=== PATIENT | male | born 1960 | race Caucasian/White ===

== ENCOUNTER 2024-02-28 10:49 | Outpatient (OUT) | payer OTHER, SELFPAY ==
--- NOTE | 2024-02-28 10:58 | ECG_ITS ---
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
--- NOTE | 2024-02-28 11:40 | P.GSHP_ITS ---
History of Present Illness History of Present Illness Chief complaint: left rotator cuff tear Narrative: Patient presents for preadmission testing accompanied by his . The patient states he had a work-related shoulder injury in July 2023. He states he continues to have limited range of motion and pain with his left shoulder. He does take meloxicam and Tylenol to help with his discomfort. He denies numbness, tingling, or any other complaints. Review of Systems ROS Narrative REVIEW OF SYSTEMS: Negative except as stated in HPI, ten or more systems reviewed. Constitutional: No fever, chills, weakness ENT: No sore throat or epistaxis Cardiovascular: No edema, chest pain, palpitations, or activity intolerance Respiratory: No shortness of breath, cough, or wheezing Gastrointestinal: No abdominal pain, constipation, diarrhea, or vomiting Genitourinary: No dysuria or hematuria Neurological: No numbness, tingling, weakness, or headache Psychiatric: No mood changes PFSH PFSH Medical History (Updated 02/28/24 @ 11:39 by Danielle Hope NP) Shoulder pain ?M25.519 - Pain in unspecified shoulder (ICD-10) Arthritis ?M19.90 - Unspecified osteoarthritis, unspecified site (ICD-10) Anxiety ?F41.9 - Anxiety disorder, unspecified (ICD-10) Heat syncope ?T67.1XXA - Heat syncope, initial encounter (ICD-10) Prostate nodule ?N40.2 - Nodular prostate without lower urinary tract symptoms (ICD-10) Hernia ?K46.9 - Unspecified abdominal hernia without obstruction or gangrene (ICD- 10) Rotator cuff tear ?M75.100 - Unspecified rotator cuff tear or rupture of unspecified shoulder, not specified as traumatic (ICD-10) Surgical History (Updated 02/28/24 @ 11:16 by Danielle Hope NP) History of hernia repair ?Z98.890 - Other specified postprocedural states (ICD-10) ?Z87.19 - Personal history of other diseases of the digestive system (ICD-10) Family History (Updated 02/28/24 @ 11:16 by Danielle Hope NP) Other Cancer Congestive heart failure Family history of heart disease Family history of hypertension Family history of lung cancer Family history of myocardial infarction Family history of prostate cancer Social History (Updated 02/28/24 @ 11:10 by Danielel Hope NP) Within the past year, how often did you have a drink containing alcohol: never Score interpretation: A score less than 4 is consistent with normal alcohol consumption. 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 Highest level of school completed/degree received: high school graduate Meds Home Medications and Allergies Home Medications ?Medication ?Instructions ?Recorded ?Confirmed ?Type acetaminophen 325 mg capsule 650 mg PO Q6H PRN pain 02/28/24 02/28/24 History (Tylenol) meloxicam 15 mg tablet 15 mg PO DAILY 02/28/24 02/28/24 History Allergies Allergy/AdvReac Type Severity Reaction Status Date / Time No Known Drug Allergies Allergy Verified 02/28/24 11:08 Exam Narrative Exam Narrative: Constitutional: Awake, alert, comfortable, well-appearing, nontoxic, interactive, vital signs as charted Head: Normocephalic, atraumatic Neck: Supple, normal appearance, normal range of motion, no meningeal signs, no lymphadenopathy Respiratory: No respiratory distress, breath sounds clear Cardiovascular: Regular rate and rhythm, strong and regular heart tones Musculoskeletal: Mild anterior left shoulder tenderness, pain with range of motion and resistance Skin: No rashes or induration, no lesions, only visible skin inspected Neuro: No neurological deficits, normal sensation Psychiatric: Oriented ?3, normal affect Assessment and Plan Assessment and Plan (1) Shoulder pain: (2) Rotator cuff tear: Plan Left shoulder arthroscopic rotator cuff repair scheduled with Dr. Mcmillan March 10, 2024.
== END 2024-02-28 10:50 | disposition home or self-care (01) ==
LOC: PST 10:53
PROVIDERS: PCP Internal Medicine; Visit Provider Orthopaedic Surgery
DX: Z01.810 Encounter for preprocedural cardiovascular examination (principal); Z01.818 Encounter for other preprocedural examination; S46.012A Strain of muscle(s) and tendon(s) of the rotator cuff of left shoulder, initial encounter
CPT/HCPCS: 93005; G0463

== ENCOUNTER 2024-03-10 11:41 | Day surgery (SDC) | payer OTHER, SELFPAY ==
[2024-02-28 11:36] VITALS: BP 142/96; PULSE 49; TEMP 36.4; O2SAT 97; BMI 25.8
[2024-03-10] VITALS (19 sets, daily range): BP systolic 110–164; BP diastolic 76–97; PULSE 58–78; TEMP 36.1–36.4; O2SAT 40–100; BMI 24.8
[2024-03-10 11:52] LABS: Basophils Absolute Auto 0.1 10^3/uL (0.0-0.1); Basophils Percent Auto 0.7 % (0.2-2.0); Eosinophils Absolute Auto 0.2 10^3/uL (0.0-0.7); Eosinophils Percent Auto 3.3 % (0.9-7.0); Hematocrit 46.6 % (42.0-54.0); Hemoglobin 15.2 g/dL (14.0-18.0); Immature Granulocytes Abs Auto 0.02 10^3/uL (0.00-0.03); Immature Granulocytes Pct Auto 0.3 % (0.0-0.5); Lymphocytes Absolute Auto 2.6 10^3/uL (1.2-3.8); Lymphocytes Percent Auto 35.1 % (20.5-60.0); Mean Corpuscular HGB Conc 32.6 g/dL (29.9-35.2); Mean Corpuscular Hemoglobin 29.9 pg (25.9-34.0); Mean Corpuscular Volume 91.7 fL (80.0-94.0); Mean Platelet Volume 10.5 fL (9.5-13.5); Monocytes Absolute Auto 0.6 10^3/uL (0.3-0.8); Monocytes Percent Auto 7.6 % (1.7-12.0); Neutrophils Absolute Auto 3.9 10^3/uL (1.4-6.5); Platelet Count 219 10^3/uL (150-450); Red Blood Count 5.08 10^6/uL (4.70-6.10); Red Cell Distribution Width 12.2 % (11.0-15.0); White Blood Count 7.3 10^3/uL (4.0-11.0)
--- OUTSIDE RECORDS SUMMARY | 2024-03-10 12:06 | XMS_ITS ---
Patient Summarization (C-CDA 2.1 CCD) Created on: March 10, 2024 DALLIN DAMON : 1960 Sex: Male Author Organization Sample organization Care Team Providers Care Hammer Heater Name Role Phone Guy Díaz Primary Care Provider DARRYL MORRIS I Admitting Unavailable DARRYL MORRIS I Attending Unavailable BACK, GUY Primary Care Unavailable Back Guy SHEPPARD Primary Care Provider BACK, GUY Primary Care Unavailable MARINE COOK Attending Unavailable BACK, GUY Referring Unavailable BACK, GUY Primary Care Unavailable BACK, GUY Referring Unavailable BACK, GUY Primary Care Unavailable BACK, GUY Referring Unavailable BACK, GUY Primary Care Unavailable NAZEMI I, DARRYL Referring Unavailable BACK, GUY Primary Care Unavailable WINSOME MODI Referring Unavailable BACK, GUY Primary Care Unavailable BACK, GUY Referring Unavailable BACK, GUY Primary Care Unavailable Encounters Encounter Date Encounter Type Care Provider Facility Start: 12-13-2023 End: 12-16-2023 ambulatory WINSOME MODI [facility] Start: 10-03-2023 ambulatory [facility] Start: 09-26-2023 End: 09-26-2023 Subsequent hospital visit by physician Dorcas Guerra [employer] [facility] Start: 09-18-2023 End: 09-19-2023 [facility] Start: 08-28-2023 End: 08-31-2023 ambulatory [facility] Start: 01-18-2023 End: 01-18-2023 Emergency department patient visit [facility] Start: 01-18-2023 End: 01-18-2023 Emergency department patient visit Marine Cook DO Work Phone: [facility] ED Comment on above: Acute urinary retent ion (Primary Dx) Start: 01-18-2023 End: 01-18-2023 [facility] Start: 01-18-2023 End: 01-18-2023 Subsequent hospital visit by physician Darryl Morris DO [facility] Comment on above: Acute postoperative pain (Primary Dx); Inguinal hernia without obstruction or gangrene, recurrence not specified, unspecified laterality Start: 01-04-2023 End: 01-05-2023 [facility] Start: 01-04-2023 Encounter for other preprocedural examination [facility] Start: 01-04-2023 End: 01-04-2023 Patient encounter status Guy Díaz MD Work Phone: [facility] Start: 01-04-2023 End: 01-04-2023 Subsequent hospital visit by physician Guy Díaz MD Work Phone: [facility] Comment on above: Pre-op testing Start: 07-14-2022 End: 07-16-2022 Subsequent hospital visit by physician Ray Cat Scan Room [facility] CT Scan Comment on above: Left groin pain Start: 01-30-2022 End: 02-01-2022 Subsequent hospital visit by physician Ray Additional Xray At [facility] Comment on above: Hip pain, left Start: 09-29-2021 End: 10-01-2021 Subsequent hospital visit by physician Guy Díaz MD Work Phone: [facility]iology Start: 07-09-2021 End: 07-09-2021 Subsequent hospital visit by physician Guy Díaz MD Work Phone: [facility] Comment on above: Chest pain, unspecif ied type; Vitamin D deficiency disease; Fatigue, unspecified type Start: 05-02-2021 End: 05-04-2021 Subsequent hospital visit by physician Ray Stress Rm [facility] Comment on above: Arrived Precordial pain; Abnormal ECG Acute pain of right knee Start: 07-10-2019 End: 07-10-2019 Emergency department patient visit Ilsa Lobo Work Phone: [facility] ED Comment on above: Clostridium difficil e colitis (Primary Dx) Medical Equipment Procedure Code Equipment Code Equipment Origin al Text Equipment Identifier Dates Mesh Theodore L [id number] Inguinal Wht [facility] - [id number] Start: 01-18-2023 Immunizations Immunization Date Immunization Notes Care Provider Chikis flores 06-24-2019 influenza, injectabl e, quadrivalent, preservative free Ilsa Lobo [facility] Medications Current Medications Medication Drug Class(es) Dates Sig (Normalized) Sig (Original) acetaminophen 325 mg / oxyCODONE hydrochloride 5 mg oral tablet (2 sources) Opioid Agonist Start: 01-18-2023 End: 01-25-2023 oxyCODONE-acetaminop hen (PERCOCET) 5-325 MG per tablet Indications: Acute postoperative pain Take 1 tablet by mouth every 4-6 hours as needed for Pain for up to 7 days. Intended supply: 7 days. Take lowest dose possible to manage pain Max Daily Amount: 6 tablets 20 tablet 0 01/18/2023 01/25/2023 Active calcium chloride 0.0014 meq/ml / potassium chloride 0.004 meq/ml / sodium chloride 0.103 meq/ml / sodium lactate 0.028 meq/ml injectable solution (2 sources) Start: 01-18-2023 IntraVENous, at 125 mL/hr, CONTINUOUS, Starting on Xuan 01/18/23 at 1245, PACU only Start: 01-18-2023 lactated ringe rs IV soln infusion Chlorpheniramine (15 sources) Histamine-1 Receptor Antagonist Chlorpheniramine Maleate (ALLERGY PO) Take by mouth 0 Active ibuprofen 600 mg oral tablet (3 sources) Nonsteroidal Anti-inflammatory Drug Start: 023 take 1 tablet by mouth three times daily as needed for pain ibuprofen (ADVIL;MOTRIN) 600 MG tablet Take 1 tablet by mouth 3 times daily as needed for Pain (take w/ food- can alternate with percocet) 20 tablet 0 01/18/2023 Active lidocaine hydrochloride 0.02 mg/mg topical gel (1 source) Antiarrhythmic, Amide Local Anesthetic Start: lidocaine (XYLOCAINE) 2 % uro-jet meloxicam 15 mg oral tablet (9 sources) Nonsteroidal Anti-inflammatory Drug Start: take 1 tablet by mouth once daily meloxicam (MOBIC) 15 MG tablet Indications: Trapezius strain, left, initial encounter Take 1 tablet by mouth daily 30 tablet 0 08/30/2023 Active Start: 06-05-2021 take 1 tablet by prabhu th once daily meloxicam (MOBIC) 15 MG tablet TAKE 1 TABLET BY MOUTH once a day FOR 30 DAYS 0 06/05/2021 Active metroNIDAZOLE 500 mg oral tablet (1 source) Nitroimidazole Antimicrobial Start: 07-10-2019 End: 07-17-2019 take 1 tablet by mouth three times daily metroNIDAZOLE (FLAGYL) 500 MG tablet Take 1 tablet by mouth 3 times daily for 7 days 21 tablet 0 07/10/2019 07/17/2019 Active Multiple Vitamin (MULTI-VITAMIN PO) (6 sources) Multiple Vitamin (MULTI-VITAMIN PO) Take by mouth 0 Active ondansetron 4 mg oral tablet (3 sources) Serotonin-3 Receptor Antagonist Start: 01-18-2023 take 1 tablet by mouth every eight hours as needed for nausea ondansetron (ZOFRAN) 4 MG tablet Take 1 tablet by mouth every 8 hours as needed for Nausea or Vomiting 15 tablet 0 01/18/2023 Active Start: 01-18-2023 End: 01-19-2023 4 mg, IntraVENous, ONCE PRN, 1 dose, Starting on Xuan 01/18/23 at 1225, Until Sun01/19/23 at 1225, Nausea Initial antiemetic therapy. PACU only 2 ml prochlorperazine 5 mg/ml injection (1 source) Phenothiazine Start: 01-18-2023 End: 01-19-2023 5 mg, IntraVENous, ONCE PRN, 1 dose, Starting on Xuan 01/18/23 at 1225, Until Sun01/19/23 at 1225, Nausea Secondary antiemetic therapy. PACU only Pseudoephedrine (1 source) alpha-Adrenergic Agonist Pseudoephedrine HCl (SUDAFED PO) Take by mouth 0 Active tiZANidine 4 mg oral tablet (1 source) Central alpha-2 Adrenergic Agonist Start: 08-30-2023 take 1 tablet by mouth once daily tiZANidine (ZANAFLEX) 4 MG tablet Indications: Trapezius strain, left, initial encounter Take 1 tablet by mouth nightly 30 tablet 0 08/30/2023 Active Completed/Discontinued Medications Medication Drug Class(es) Dates Sig (Normalized) Sig (Original) acetaminophen 325 mg oral tablet (2 sources) Start: 01-18-2023 End: 01-18-2023 acetaminophen (TYLENOL) tablet 650 mg Start: 01-18-2023 End: 01-18-2023 acetaminophen (TYLENOL) tabl et 650 mg ceFAZolin 2000 mg injection (1 source) Cephalosporin Antibacterial Start: 01-18-2023 End: 01-18-2023 ceFAZolin (ANCEF) 2000 mg in 0.9% sodium chloride 100 mL IVPB dimenhyDRINATE 50 mg oral tablet (2 sources) Start: 01-18-2023 End: 01-18-2023 dimenhyDRINATE (DRAMAMINE) tablet 50 mg Start: 01-18-2023 End: 01-18-2023 dimenhyDRINATE (DRAMAMINE) t ablet 50 mg 2 ml fentaNYL 0.05 mg/ml injection (2 sources) Opioid Agonist Start: 01-18-2023 50 mcg, IntraV ENous, EVERY 5 MIN PRN, 4 doses, Starting on Xuan 01/18/23 at 1225, Until Discontinued, Pain Severe (7-10) Phase I - Initial therapy for severe pain. PACU only Start: 01-18-2023 25 mcg, IntraV ENous, EVERY 5 MIN PRN, 4 doses, Starting on Xuan 01/18/23 at 1225, Until Discontinued, Pain Moderate (4-6) Phase I - Initial therapy for moderate pain. PACU only gabapentin 100 mg oral capsule (2 sources) Anti-epileptic Agent Start: 01-18-2023 End: 01-18-2023 gabapentin (NEURONTIN) capsule 100 mg Start: 01-18-2023 End: 01-18-2023 gabapentin (NEURONTIN) capsu le 100 mg iopamidol (ISOVUE-370) 76 % injection 75 mL (1 source) Start: 07-14-2022 End: 07-14-2022 iopamidol (ISOVUE-370) 76 % injection 75 mL regadenoson (LEXISCAN) injec tion 0.4 mg (1 source) Start: 05-02-2021 End: 05-02-2021 regadenoson (LEXISCAN) injection 0.4 mg 3 ml sodium chloride 9 mg/ml injection (2 sources) Start: 05-02-2021 End: 05-02-2021 sodium chloride flush 0.9 % injection 10 mL Start: 07-10-2019 End: 07-10-2019 0.9 % sodium chloride bolus technetium sestamibi (CARDIOLITE) injection 30 millicurie (1 source) Start: 05-02-2021 End: 05-02-2021 technetium sestamibi (CARDIOLITE) injection 30 millicurie Payers Date Payer Category Payer Unknown [id number] 2022 Private Health Insurance [id number] 2020 Unknown [id number] 2018 Unknown BC[place] P PO xxxxxxxxxxxx 2018-Present [address] [place] [address] xxxxxxxxxxxx [id number] 2014 Private Health Insurance [id number] 1960 Unknown [id number] 1960 Unknown [id number] 1960 Unknown [id number] 1960 Unknown [id number] 1960 Unknown [id number] 1960 Unknown [id number] 1960 Unknown [id number] 1960 Unknown [id number] Plan of Treatment Date Care Activity Detail Author Start: 07-09-2026 Lipid panel [facility] Start: 03-10-2025 Screening for malign ant neoplasm of colon [facility] Start: 07-03-2024 Depression Screen Depression Screen [facility] Start: 10-04-2023 End: 10-04-2023 Patient encounter procedure 10/04/2023 4:45 PM EST Appointment [facility] [address] [place] [address] Pete Collier, PT [facility]/[employer] Ins 3 of 30 valid till 12/30/2023(Ins Reset 12/31/2023)- LT Trapezius strain-Back, Guy [facility] Comment on above: [employer] Ins 3 of 30 valid till 12/30/2023(Ins Reset 12/31/2023)- LT Trapezius strain-Back, Guy Start: 10-03-2023 End: 10-03-2023 Patient encounter procedure 10/03/2023 4:45 PM EST Appointment [facility] [address] [place] [address] Pete Collier, PT C/[employer] Ins 2 of 30 valid till 12/30/2023(Ins Reset 12/31/2023)- LT Trapezius strain-Back, Guy [facility] Comment on above: [employer] Ins 2 of 30 valid till 12/30/2023(Ins Reset 12/31/2023)- LT Trapezius strain-Back, Guy Start: 05-01-2023 Influenza vaccination [facility] Start: 01-31-2023 End: 01-31-2023 Patient encounter procedure 01/31/2023 Office Visit General Surgery Darryl Morris I, DO [address] [place] [address] [facility] SURGERY [facility] Start: 01-26-2023 Depression Screen Depression Screen [facility] Start: 01-24-2023 End: 01-24-2023 Patient encounter procedure 01/24/2023 Office Visit General Surgery Darryl Morris I, DO [address] [place] [id number] [facility] Start: 01-18-2023 End: 01-18-2023 Admission to same day surgery center 01/18/2023 Surgery IP Unit Darryl Morris I, DO [address] [place] [address] HERNIA INGUINAL REPAIR LAPAROSCOPIC ROBOTIC [facility] OR Comment on above: HERNIA INGUINAL REPA IR LAPAROSCOPIC ROBOTIC Start: 01-18-2023 End: 01-18-2023 Laparoscopy surg rpr initial inguinal hernia [facility] Start: 01-18-2023 Subsequent hospital visit by physician 01/18/2023 Hospital Encounter IP Unit Darryl Morris I, DO [address] [place] [id number] [facility] Start: 06-01-2022 Influenza vaccination Flu vaccine (S rodney Ended) [facility] Start: 05-01-2022 Influenza vaccination Flu vaccine (# 1) [facility] Start: 04-26-2022 End: 04-26-2022 Admission to same day surgery center 04/26/2022 Surgery IP Unit Clive Cueva MD [address] [place] [address] HERNIA INGUINAL REPAIR [facility] Comment on above: HERNIA INGUINAL REPA IR Start: 04-26-2022 End: 04-26-2022 Laparoscopy surg rpr initial inguinal hernia HERNIA INGUINAL REPAIR LT INGUINAL HERNIA 04/26/2022 8:00 AM EDT [facility] Start: 04-26-2022 Subsequent hospital visit by physician 04/26/2022 Hospital Encounter IP Unit Clive Cueva MD [address] [place] [address] [address] [place] [id number] [facility] Start: 06-01-2021 Influenza vaccination Flu vaccine (# 1) [facility] Start: 2021 Respiratory Syncytia l Virus (RSV) or age 60 yrs+ (1 - 1-dose 60+ series) Respiratory Syncytial Virus (RSV) or age 60 yrs+ (1 - 1-dose 60+ series) [facility] Start: 06-24-2019 Annual Wellness Visi t (AWV) Annual Wellness Visit (AWV) [place], [place] Start: 2011 Colon cancer screen colonoscopy Colon cancer screen colonoscopy [place], [place] Start: 2011 Shingles Vaccine (1 of 2) Shingles Vaccine (1 of 2) [facility] Start: 2006 Screening for malign ant neoplasm of colon [facility] Start: 2001 Lipid panel Lipid screen [facility] Work Phone: Start: 2001 Lipid screen Lipid screen [place], [place] Start: 1996 Diabetes screen Diabetes screen [facility] Start: 1980 DTaP/Tdap/Td vaccine (1 - Tdap) DTaP/Tdap/Td vaccine (1 - Tdap) [facility] Start: 1979 Hepatitis C screening Hepatitis C sc [facility] Start: 1976 HIV screen HIV screen [place], [place] Start: 1976 HIV screening HIV screen [facility] Start: 1973 COVID-19 Vaccine (1) COVID-19 Vaccin e (1) [employer] Phone: Start: 1966 COVID-19 Vaccine (1) COVID-19 Vaccin e (1) [employer] Start: 1960 COVID-19 Vaccine (#1) COVID-19 Vacci ne (#1) [facility] [employer] Start: 1960 Hepatitis C screen Hepatitis C scree n [facility] [employer] [place], [place] Start: 1961 Hepatitis C screening [facility] End: 05-02-2021 Cardiac Stress Test- W Pharm Cardiac Stress Test- W Pharm Cardiac Services Routine One Time for 1 Occurrences starting 05/02/2021 until 05/02/2021 [employer] Phone: Comment on above: One Time for 1 Occur rences starting 05/02/2021 until 05/02/2021 End: 07-10-2019 Culture Stool Culture Stool Microbiology Routine One Time for 1 Occurrences starting 07/10/2019 until 07/10/2019 [facility] [employer] Comment on above: One Time for 1 Occur rences starting 07/10/2019 until 07/10/2019 Culture Stool Culture Stool Mi crobiology Stat [employer] Label print 07/10/2019 6:52 PM EDT [facility] [employer] End: 05-02-2021 ECHO Complete 2D W Doppler W Color ECHO Complete 2D W Doppler W Color Echocardiography Routine Precordial pain Abnormal ECG 1 Occurrences starting 05/02/2021 until 05/02/2021 [employer] Phone: Comment on above: 1 Occurrences starti ng 05/02/2021 until 05/02/2021 EKG 12 lead EKG 12 lead ECG Routine Pre-op testing 01/04/2023 2:38 PM EDT [employer] Phone: End: 01-18-2023 INITIATE PACU OXYGEN THERAPY PROTOCOL Initiate PACU Oxygen Therapy Protocol Respiratory Care Routine Continuous until discontinued starting 01/18/2023 [employer] Phone: Comment on above: Continuous until dis continued starting 01/18/2023 Surgical Pathology Surgical Path ology Lab Routine Inguinal hernia without obstruction or gangrene, recurrence not specified, unspecified laterality Release Upon Ordering for 1 Occurrences starting 01/18/2023 MICHELE ROPER [employer] Work Phone: Comment on above: Release Upon Orderin g for 1 Occurrences starting 01/18/2023 Problems Active Problems Problem Classification Problem Date Documented Date Episodic/Chronic Abdominal pain (1 source) Left inguinal pain; Translations: [Left lower quadrant pain] Episodic Malaise and fatigue (1 source) Fatigue; Translations: [Other fatigue] Episodic Nonspecific chest pain (2 sources) Precordial pain; Translations: [Precordial pain] Episodic Nutritional deficiencies (1 source) Vitamin D deficiency; Translations: [Vitamin D deficiency, unspecified] Chronic Other nervous system disorders (3 sources) Other chronic pain; Translations: [Other chronic pain] Onset: 08-28-2023 Chronic Other nervous system disorders (1 source) Acute postoperative pain; Translations: [Other acute postprocedural pain] Episodic Other nervous system disorders (1 source) Other acute postprocedural pain; Translations: [Other acute postprocedural pain] Onset: 01-18-2023 Episodic Other non-traumatic joint disorders (1 source) Pain in right knee; Translations: [Pain in joint, lower leg] Episodic Other non-traumatic joint disorders (1 source) Hip pain; Translations: [Pain in left hip] Episodic Other screening for suspected conditions (not mental disorders or infectious disease) (1 source) Electrocardiogram abnormal; Translations: [Abnormal electrocardiogram [ECG] [EKG]] Episodic Past or Other Problems Problem Classification Problem Date Documented Da te Episodic/Chronic Abdominal hernia (6 sources) Inguinal hernia; Translations: [Unilateral inguinal hernia, without obstruction or gangrene, not specified as recurrent] Onset: 01-18-2023 Episodic Genitourinary symptoms and ill-defined conditions (2 sources) Acute retention of urine ; Translations: [Other retention of urine] Onset: 01-18-2023 Episodic Intestinal infection (1 source) Clostridium difficile colitis; Translations: [Clostridium difficile colitis] Episodic Other and unspecified benign neoplasm (4 sources) Lipoma of forearm; Translations: [Benign lipomatous neoplasm of skin and subcutaneous tissue of unspecified limb] Onset: 01-18-2023 Episodic Other and unspecified benign neoplasm (1 source) Benign lipomatous neoplasm of skin and/or subcutaneous tissue of left upper limb; Translations: [Benign lipomatous neoplasm of skin and subcutaneous tissue of left arm] Onset: 01-25-2023 01-25-2023 Episodic Other male genital disorders (1 source) Scrotal mass; Translations: [Other specified disorders of the male genital organs] Onset: 01-25-2023 01-25-2023 Episodic Other non-traumatic joint disorders (3 sources) Pain in left shoulder; Translations: [Pain in left shoulder] Onset: 08-28-2023 Episodic Procedures Date Procedure Procedure Detail Performing Clinician Start: 01-04-2023 Ecg routine ecg w/le ast 12 lds w/i&r Darryl Morris DO Work Phone: Start: 07-14-2022 Ct pelvis w/contrast material Darryl Morris DO Work Phone: Start: 01-30-2022 Radex hips bilateral with pelvis 2 views Guy Díaz MD Work Phone: Start: 07-09-2021 Comprehensive metabo lic panel Baldomero Salazar MD Work Phone: Start: 07-09-2021 Lipid panel Baldomero urbina MD Work Phone: Start: 05-02-2021 Myocardial spect mul tiple studies Guy Díaz MD Work Phone: Start: 05-02-2021 Radiologic exam knee complete 4/more views Guy Díaz MD Work Phone: Start: 07-10-2019 Urnls dip stick/tabl et rgnt auto w/o microscopy Veselin Yamil Work Phone: Start: 07-10-2019 Toxin/antitoxin assa y tissue culture Veselin Yamil Work Phone: Start: 07-10-2019 Blood count complete auto&auto difrntl wbc Veselin Yamil Work Phone: Start: 07-10-2019 Comprehensive metabo lic panel Veselin Yamil Work Phone: Results Test Name Value Interpretation Reference Range Facility MRI SHOULDER LEFT WO CONTRAS Ton 12-14-2023 MRI SHOULDER LEFT WO CONTRAST EXAM: MRI SHOULDER LEFT WO CONTRAST REASON FOR EXAM: Shoulder pain with repetitive pulling at work. TECHNIQUE: Multiplanar, multisequence imaging of the left shoulder without IV contrast. COMPARISON: X-rays 08/28/2023. FINDINGS: There is a notable near full-thickness tear of the supraspinatus tendon measuring 1.6 cm transversely and at least 1 cm AP. Moderate subacromial-subdelto id bursitis. There is a 2 cm focus of prominent bone marrow edema in the superior aspect of the humeral head due to at least mild glenohumeral joint arthritis. Degenerative tearing of the posterior superior labrum seen. Small glenohumeral joint effusion noted. No muscle atrophy. AC joint is intact. No fracture, AVN, or neoplastic changes. Insertional subscapularis tendinosis with small subcentimeter partial-thickness undersurface tear with some reactive bone edema in the lesser tuberosity seen. There is mild biceps tendon sheath fluid with some tendinosis and/or partial-thickness tear of the biceps tendon as it transitions from the bicipital groove but difficult to assess due to motion. No sagittal STIR images provided for my review. IMPRESSION: 1. There is a notable near full-thickness tear of the supraspinatus tendon measuring 1.6 cm transversely and at least 1 cm AP. Moderate subacromial-subdelto id bursitis. No muscle atrophy. 2. There is a 2 cm focus of prominent bone marrow edema in the superior aspect of the humeral head due to at least mild glenohumeral joint arthritis. Degenerative tearing of the posterior superior labrum seen. 3. Insertional subscapularis tendinosis with small subcentimeter partial-thickness undersurface tear with some reactive bone edema in the lesser tuberosity seen. 4. There is mild biceps tendon sheath fluid with some tendinosis and/or partial-thickness tear of the biceps tendon as it transitions from the bicipital groove but difficult to assess due to motion. Interpreted by: Wilver Olivo MD Signed by: Wilver Olivo MD 12/14/23 Final result Normal [facility] XR SHOULDER LEFT (MIN 2 VIEW S)on 08-28-2023 XR SHOULDER LEFT (MIN 2 VIEWS) EXAM: XR SHOULDER LEFT (MIN 2 VIEWS) HISTORY: Chronic left shoulder pain. COMPARISON: None. IMPRESSION: FINDINGS/IMPRESSION: 1. Minimal age-expected narrowing at the acromioclavicular and glenohumeral joint. 2. Good bone mineralization. 3. No fracture. 4. Negative for calcific bursitis. Interpreted by: Jeffrey Lam Jr., MD Signed by: Jeffrey Lam Jr., MD 08/28/23 Final result Normal [facility] Surgical Pathologyon 023 Surgical Pathology (NOTE) -- Diagnosis -- A. SOFT TISSUE, SITE NOT SPECIFIED, EXCISION: -LIPOMA(S) B. SOFT TISSUE, LEFT ANTECUBITAL FOSSA, EXCISION: -NODULAR SUBCUTANEOUS FAT NECROSIS WITH EXTENSIVE DYSTROPHIC CALCIFICATION Benjamin Urbano D.O. Electronically Signed Out 01/22/2023 Clinical Information Pre-op Diagnosis: LEFT INGUINAL HERNIA Operative Findings: ARM BODY LIPOMAS; ARM LEFT ANTECUBITAL FOSSA NODULE Operation Performed: HERNIA INGUINAL REPAIR LAPAROSCOPIC ROBOTIC tm Source of Specimen A: BODY LIPOMA B: LEFT ANTECUBITAL FOSSA NODULE Gross Description A. DALLIN DAMON, BODY LIPOMAS Lobular fatty fragments, 7.5 x 7.0 x 4.0 cm in aggregate. Sectioning reveals no hemorrhage or necrosis. Portion 1cs. B. DALLIN DAMON, LEFT ANTECUBITAL FOSSA NODULE 2.5 x 1.2 x 1.0 cm circumscribed portion of leonard-yellow tissue. Sectioning reveals a unilocular cystic space with friable yellow material. Entirely 1cs. tm Microscopic Description A, B. Microscopic examination performed. SURGICAL PATHOLOGY CONSULTATION Patient Name: DALLIN DAMON [facility] Rec: [id number] Path Number: [id number] [facility] [employer] [facility] ANATOMIC PATHOLOGY [address] [place] [id number] [facility] Comment on above: Performed By: #### P PPVS #### [facility] [address] [place] [address] [id number] [employer] Switchman: Rajan Lora MD CT PELVIS W CONTRAST Additio nal Contrast? Noneon 07-14-2022 Radiology Study observation (narrative) [facility] [employer] Work Phone: Indirect left inguinal hernia containing fat and a loop of nonobstructed sigmoid colon. Right inguinal region normal. [facility] EXAMINATION: CT PELVIS W CONTRAST HISTORY: Left groin pain. COMPARISON: None. TECHNIQUE: CT pelvis with IV contrast. Dose reduction techniques were achieved by using automated exposure control and/or adjustment of mA and/or kV according to patient size and/or use of iterative reconstruction technique. FINDINGS: PERTINENT POSITIVES: A indirect left inguinal hernia measures 4.1 cm in greatest transverse dimension and extends a length of 10.5 cm. It contains a loop of nonobstructed sigmoid colon and fat. PERTINENT NEGATIVES: No bowel obstruction. COINCIDENTAL FINDINGS: Moderate degenerative change of the hips, not unusual for age. Multiple diverticula sigmoid colon, without acute diverticulitis. Retroaortic left renal vein, normal variant. ROUTINE EXAMINATION: Normal size prostate. Bladder contour normal. Normal appendix. [facility] Jeffrey Lam Jr., MD - 07/14/2022 EXAMINATION: CT PELVIS W CONTRAST HISTORY: Left groin pain. COMPARISON: None. TECHNIQUE: CT pelvis with IV contrast. Dose reduction techniques were achieved by using automated exposure control and/or adjustment of mA and/or kV according to patient size and/or use of iterative reconstruction technique. FINDINGS: PERTINENT POSITIVES: A indirect left inguinal hernia measures 4.1 cm in greatest transverse dimension and extends a length of 10.5 cm. It contains a loop of nonobstructed sigmoid colon and fat. PERTINENT NEGATIVES: No bowel obstruction. COINCIDENTAL FINDINGS: Moderate degenerative change of the hips, not unusual for age. Multiple diverticula sigmoid colon, without acute diverticulitis. Retroaortic left renal vein, normal variant. ROUTINE EXAMINATION: Normal size prostate. Bladder contour normal. Normal appendix. IMPRESSION: Indirect left inguinal hernia containing fat and a loop of nonobstructed sigmoid colon. Right inguinal region normal. [employer] Phone: CT PELVIS W CONTRAST Additio nal Contrast? NoneOrdered By: Jeffrey Lam on 07-14-2022 [employer] Phone: XR HIP BILATERAL W AP PELVIS (2 VIEWS)on 01-30-2022 Radiology Study observation (narrative) [employer] Phone: No acute pelvic or bilateral hip osseous abnormality. Bilateral hip degenerative changes are noted. [facility] EXAM: XR HIP BILATERAL W AP PELVIS (2 VIEWS) HISTORY: M 25.552 bilateral hip pain for months getting worse. COMPARISON: None. TECHNIQUE: AP view of the pelvis with AP and external rotation views of both hips FINDINGS: Pelvic osseous structures appear intact. Mild sacroiliac joint sclerosis noted. No hip fracture or dislocation is seen. Bilateral hip degenerative changes are present with superior acetabular sclerosis, mild periarticular spurring/calcificati on. No femoral head flattening or deformity is seen. [facility] Abel Khan, DO - 01/30/2022 EXAM: XR HIP BILATERAL W AP PELVIS (2 VIEWS) HISTORY: M 25.552 bilateral hip pain for months getting worse. COMPARISON: None. TECHNIQUE: AP view of the pelvis with AP and external rotation views of both hips FINDINGS: Pelvic osseous structures appear intact. Mild sacroiliac joint sclerosis noted. No hip fracture or dislocation is seen. Bilateral hip degenerative changes are present with superior acetabular sclerosis, mild periarticular spurring/calcificati on. No femoral head flattening or deformity is seen. IMPRESSION: No acute pelvic or bilateral hip osseous abnormality. Bilateral hip degenerative changes are noted. [employer] Work Phone: XR HIP BILATERAL W AP PELVIS (2 VIEWS)Ordered By: Abel Khan on 01-30-2022 [employer] Work Phone: CBC Auto DifferentialOrdered By: Baldomero Salazar on 07-09-2021 Absolute Eos # 0.30 [employer] [facility] Work Phone: Absolute Immature Granulocyte NOT REPORTED [employer] Work Phone: Absolute Lymph # 2.30 [employer] [facility] Work Phone: Absolute [place] # 0.60 [employer] [facility] Work Phone: Basophils (Bld) [#/Vol] 0.00 10*3/uL [employer] Work Phone: Basophils/100 WBC (Bld) 1 % 0 - 2 % [employer] Phone: Differential Type YES [employer] Work Phone: Eosinophils/100 WBC (Bld) 5 % 0 - 5 % [employer] Phone: Hematocrit (Bld) [Volume fraction] 45.0 % 41 - 53 % [employer] Phone: Hemoglobin.gastrointes tinal spec 1 Ql (Stl) 15.4 g/dL 13.5 - 17.5 g/dL [employer] Phone: Immature Granulocytes NOT REPORTED 0 % [employer] Phone: Lymphocytes/100 WBC (Bld) 36 % 13 - 44 % [employer] Phone: MCH (RBC) [Entitic mass] 30.4 pg 26 - 34 pg [employer] Phone: MCHC (RBC) [Mass/Vol] 34.2 g/dL 31 - 37 g/dL [employer] Phone: MCV (RBC) [Entitic vol] 88.9 fL 80 - 100 fL [employer] Phone: Monocytes/100 WBC (Bld) 10 % High 5 - 9 % [employer] Phone: NRBC Automated NOT REPORTED per 100 WBC [employer] Work Phone: Platelet distribution width (Bld) [Ratio] 13.5 % 12.1 - 15.2 % [employer] Phone: Platelet Estimate NOT REPORTED [employer] Phone: Platelet mean volume (Bld) [Entitic vol] NOT REPORTED 6.0 - 12.0 fL [employer] Phone: Platelets (Bld) [#/Vol] 245 10*3/uL [employer] Phone: RBC (Bld) [#/Vol] 5.06 10*6/uL 4.5 - 5.9 m/uL [employer] Work Phone: RBC (Bld) [#/Vol] NOT REPORTED [employer] Work Phone: Segmented neutrophils/100 WBC (Bld) 48 % 39 - 75 % [employer] Work Phone: Segs Absolute [employer] Work Phone: WBC (Bld) [#/Vol] 6.4 10*3/uL [employer] Work Phone: WBC (Bld) [#/Vol] NOT REPORTED [employer] Work Phone: Comprehensive Metabolic Pane lOrdered By: Baldomero Salazar on 07-09-2021 Albumin [Mass/Vol] 4.2 g/dL 3.5 - 5.2 g/dL [employer] Phone: Albumin/Globulin Ratio NOT REPORTED [employer] Phone: ALP (Bld) [Catalytic activity/Vol] 107 U/L 40 - 129 U/L [employer] Phone: ALT [Catalytic activity/Vol] 31 U/L 5 - 41 U/L [employer] Phone: Anion gap [Moles/Vol] 7 mmol/L Low 9 - 17 mmol/L [employer] Phone: AST [Catalytic activity/Vol] 29 U/L <40 [employer] Phone: Bilirubin [Mass/Vol] 0.82 mg/dL 0.30 - 1.20 mg/dL [employer] Phone: Calcium [Mass/Vol] 10.4 mg/dL 8.6 - 10. 4 mg/dL [employer] Phone: Chloride [Moles/Vol] 106 mmol/L 98 - 10 7 mmol/L [employer] Phone: CO2 [Moles/Vol] 26 mmol/L 20 - 31 mmol/L [employer] Phone: Creatinine [Mass/Vol] 0.77 mg/dL 0.70 - 1.20 mg/dL [employer] Phone: Free PSA/Total PSA [Mass fraction] 7.0 g/dL 6.4 - 8.3 g/dL [employer] Phone: GFR >60 >60 mL/min [employer] Phone: GFR Non- >60 >60 mL/min [employer] Phone: GFR/1.73 sq M.predicted MDRD (S/P/Bld) [Vol rate/Area] [employer] Phone: Comment on above: Average GFR for 60-6 9 years old: 85 mL/min/1.73sq m Chronic Kidney Disease: <60 mL/min/1.73sq m Kidney failure: <15 mL/min/1.73sq m eGFR calculated using average adult body mass. Additional eGFR calculator available at: http://www.Skype/multiple_crcl_2012.htm GFR/1.73 sq M.predicted MDRD (S/P/Bld) [Vol rate/Area] NOT REPORTED [employer] Phone: Glucose [Mass/Vol] 103 mg/dL High 70 - 99 mg/dL [employer] Phone: Potassium [Moles/Vol] 4.0 mmol/L 3.7 - 5.3 mmol/L [employer] Phone: Sodium [Moles/Vol] 139 mmol/L 135 - 144 mmol/L [employer] Phone: Urea nitrogen (BldV) [Mass/Vol] 16 mg/dL 8 - 23 mg/dL [employer] Phone: Urea nitrogen/Creatinine (Bld) [Mass ratio] 21 High [employer] Phone: Lipid PanelOrdered By: Baldomero Salazar on 07-09-2021 Cholesterol [Mass/Vol] 202 mg/dL High <200 [employer] Phone: Comment on above: Cholesterol Guidelines: <200 Desirable 200-240 Borderline >240 Undesirable Cholesterol in HDL [Mass/Vol] 43 mg/dL >40 [facility] Comment on above: HDL Guidelines: <40 Undesirable 40-59 Borderline >59 Desirable Cholesterol in LDL [Mass/Vol] 139 mg/dL High 0 - 130 mg/dL [employer] Phone: Comment on above: LDL Guidelines: <100 Desirable 100-129 Near to/above Desirable 130-159 Borderline >159 Undesirable Direct (measured) LDL and calculated LDL are not interchangeable tests. Cholesterol in VLDL [Mass/Vol] NOT REPORTED 1 - 30 mg/dL [employer] Phone: Cholesterol.total/Chol esterol in HDL [Mass ratio] 4.7 {ratio} <5 [facility]: Interpretation and review of laboratory results Abnormal [employer] Phone: Triglyceride [Mass/Vol] 100 mg/dL <150 [employer] Phone: Comment on above: Triglyceride Guidelines: <150 Desirable 150-199 Borderline 200-499 High >499 Very high Based on AHA Guidelines for fasting triglyceride, July 2012. [employer] Phone: MagnesiumOrdered By: Baldomero kruse on 07-09-2021 Magnesium [Mass/Vol] 2.2 mg/dL 1.6 - 2 .6 mg/dL [employer] Phone: No Panel InformationOrdered By: Baldomero Salazar on 07-09-2021 Interpretation and review of laboratory results Abnormal [employer] Phone: [employer] Phone: TSH with ReflexOrdered By: Trinity Salazar on 07-09-2021 TSH Qn 1.42 m[IU]/L [employer] Phone: Vitamin D 25 HydroxyOrdered By: Baldomero Salazar on 07-09-2021 Vit D, 25-Hydroxy 67.8 ng/mL 30.0 - 100 .0 ng/mL [employer] Phone: Comment on above: Reference Range: Vitamin D status Range Deficiency <20 ng/mL Mild Deficiency 20-30 ng/mL Sufficiency 30-100 ng/mL Toxicity >100 ng/mL [employer] Phone: NM Cardiac Stress Test Nucle ar ImagingOrdered By: Guy [employer] on 05-02-2021 Radiology exam is complete. No Radiologist dictation. Please follow up with ordering provider. [employer] Phone: No Panel InformationOrdered By: Guy [employer] on 05-02-2021 [employer] Phone: XR KNEE RIGHT (MIN 4 VIEWS)O rdered By: Guy Back on 05-02-2021 No acute osseous abnormality. Mild degenerative changes are present. There are prominent joint space calcifications consistent with chondrocalcinosis/de generative meniscal calcifications. Small suprapatellar joint effusion is present. Clinical picture may warrant additional MR evaluation. [employer] Phone: EXAM: XR KNEE RIGHT (MIN 4 VIEWS) HISTORY: right lateral knee pain for months. COMPARISON: None. TECHNIQUE: Erect AP view of both knees with right knee lateral, oblique, and patellar views FINDINGS: No fracture or dislocation is seen. There is mild medial and inferior patellofemoral joint space narrowing and early inferior patellar spurring noted consistent with degenerative change. There are moderately prominent joint space calcifications seen medially, laterally and posteriorly consistent with degenerative meniscal calcification/chondr ocalcinosis. This is present bilaterally being slightly more prominent on the right. There is mild fullness in the suprapatellar region which may relate to a degree of joint effusion. Superior patellar insertion calcifications are present. Joint effusion. [employer] Phone: Jose, Mhpn Incoming Radiant Results From [facility] - 05/02/2021 11:58 AM EDT EXAM: XR KNEE RIGHT (MIN 4 VIEWS) HISTORY: right lateral knee pain for months. COMPARISON: None. TECHNIQUE: Erect AP view of both knees with right knee lateral, oblique, and patellar views FINDINGS: No fracture or dislocation is seen. There is mild medial and inferior patellofemoral joint space narrowing and early inferior patellar spurring noted consistent with degenerative change. There are moderately prominent joint space calcifications seen medially, laterally and posteriorly consistent with degenerative meniscal calcification/chondr ocalcinosis. This is present bilaterally being slightly more prominent on the right. There is mild fullness in the suprapatellar region which may relate to a degree of joint effusion. Superior patellar insertion calcifications are present. Joint effusion. IMPRESSION: No acute osseous abnormality. Mild degenerative changes are present. There are prominent joint space calcifications consistent with chondrocalcinosis/de generative meniscal calcifications. Small suprapatellar joint effusion is present. Clinical picture may warrant additional MR evaluation. [employer] Work Phone: Coding Summary.on 04-28-2021 Coding Summary. [id number] Gh0bWw+PGhlYWQ+PE1FV EPlJ24kfOSpzS2FB2pJB I2ANCUYKHSZDN5JHY4jd FR9KGifQ0RghaOc HgnygGTqFO59UQy5VAM4 dSlmREfgiJ2xiZXzS5x3 MoBeXG90oH60WIafEBMl UlW1RjYqijydtGKx S9mgDxGbjXOuNmo+PHRh YmxlIHdpZHRoPScxMDAl AaTjdIjyDI8qRs9wASAe LWNvbGxhcHNlOiBj y1rlVEZoDUmhIR9aeLfa Q0LglVT2TOQvx0y4Jw77 dHI+DEKkYRR0sArlNUnf i227ZbYdb5ulHXV5 gMLtAAujGQN5O68hu6F7 NBKxCZWeGUO9kMN3zS8t iDcffsccG2JeyNDrEwM2 WQX0bUFzbV1csCss uzirfM3aXon+Z30VIY5N TRXDJV2KVhi6I2VjMbtq dHI+DE41TVRiYF91mGDr yDGcp0brdHq0EbZf HKIwERS8oRqxYFvur8Ht SIFjJ93kxOSbj7E1HJRm xPicoRXiIaPnxUI0vC8e MMbhqibzu4lplihc Kpfbj6ykjj99qV09G85l RFlmMJAhDNJ4WWJnOIBn nHoxbj3sqH8kRz9+IDxj a8jin1kywSk2WcKi KMEhccEylPczDVK4o2Hf Br64P5RxtNepq9EsQiu0 sb45yRGtz3G1cQH6KZfh QWXbiA0wWElcUnC1 YVIsQdAjyI71pUSxNPzo Og4tfGpcoZokMN5fDMJr xogtLGBxrH5lYPQrwHHx eNfaED2nRHFvkbaf j840NjYtHWW5CKQrkVFs V8YwqL6xZiKuTBZsMWVe X6KduWOuUBttN086ZInd CuN9YIYxbyZaF6Hb HLAtlMwiCaH6j1B7Gj8O g9DgshmuRGJ2ADyjZDF5 HhU8YgJwDnH5G6RyAgp5 HQAkaHmdGW4iL8Ap TLKitziktzufnZW5HQYp ACIubJ28uDKuJMhwJg6i j2G5o090QLEgTWZwqB11 Jj5rrPylNHChdXWO iS3oqlkdk7vlgokcCaGc GCBgMIr7PQk3DNVttTxy CtHxOUB3MgQ0UCL6wSFi nH2ttYohetkllR7g Oyc+R95alQ6yTBP8UFZ8 petiTMSdpaVqXB09EW02 I0ViUdcvkLSeiGI+PGRp qjTpoGddKX1nQxDk u7xmf3OoPDgsG6HtZAAc NAlsNvv8AYNiXHT8kKQ7 xK3vEUJgDBbox6I2nJT7 V6AdicSxrh8gz7wb LVZuXJepB74uzTAda1Y2 QAHymPG8ZTHgbSwqUnRf lE63Ddn+RCGtuQhfu4Uh Buwjl1awv2eyiAt4 IjMwJSIgdmFsaWduPSJ0 c3QiTn93R96rMZbaPOMh XUIfKAGcZGXkkWrfut2j nT4aAc5+PGNvbCB3 mTZ7lQ2iJVPpXzE7YZpn U606UhVeeVLgNeduv5me g2adcJn8WyUtCGAuxaMw gOflPHU8y8ZbMw95 P10jDBpfHEEiGSIlAZXp LXNqtSlycg8xcX5nTq0+ DY0ec5mqnz10mT97xBE+ SBLzOQJ6rUypZPqj LWVzoA8dUTdyWzK2VTFi StXqxX16dAYpFPniBc8i gOivdPrcRN7gSEVuheyp u256YtFxq5bbYQMu oKGcHPecHIJ8V04zn7T1 XNKmALAqMPN8mUC9fI4c bGlnbjogbGVmdDsgdmVy sDlrFZloMBdfH768 IHRvcDsnPlBhdGllbnQg WvKpRIg7M1AoIrn8OJDp sHmcQI2aoVKiQXurYt5x pRhpfBpzJT0fKPZk odrws340TuOhk1yqUVYf jNYkXSnkQTX3U08un7P6 ZKIbOMWvMBQ6hCN9rZ4k bGlnbjogbGVmdDsg iyZwmHnuPVazYGpuD539 IHRvcDsnPkJpcnRoIERh iMK7QK87RS60aCAee6Q9 cZD4G0IxUJDsnudw ntaseRT4GXCvXOTnzE02 Dj5aiMyyEt3eINUbERY0 CNFojTEaF0QooJ5kMpFu NABhXTYwD9ZmiIVt YArpZ651QSaiOlB9EPWp ghJrQ9ZbYMAvkRjiTnR0 z2W4La2GM1V3SO53NQ82 hLFgc6J8xRE0K3Uo IPMpslqwlctfxYH3XHWh OYMkdC34Sj3hsBymSm1o HYKjIES8WMBoeNBhO4Im kK2kBtJgQOJzTBTl Y2CbyIPvCGkiA427NEce UtQ6OMAafyWgA2JpHSEg eIsiWhW5j1D8Jr1QLVb6 QO71RA74gZPuq3V7 lZW4O8GlJMXczhwkbwfr bAB5KFTzMNAafD52Rb8s cEpyOk4eGSIvPRI4CDRk mIRpR3DfbQ0oYeOd ZPFzVVZtP7HtgWUwNZlg E575CRqeQaB7TTIfbqLb X2NsSDCoeZxsPyJ7c7C2 Iu3DMLTqMF83IDN8 oZM0DD41WZ94E2ZoAhsc dGFibGU+PHRhYmxlIHdp ZHRoPScxMDAlJyBzdHls EB3yPc9gDUJaFEBm tGogjYLqEzBqj3hwVJJg PCooBU4fgGgyE7MsmGD4 PAEum7z3Fi49U05dK9Ec dXA+CBVevDQ8sMG7 pA8fItAwEqT1RFhpB081 IeHphNIeWczbe9jvy3dh bFo9MvA6COYnlqWmfJzq ZOP8g4QdLz04L74w IHdpZHRoPSIxNSUiIHZh lDgbfy4mnW4lYo1+PGNv zXB6qSJ2xN7iFuJiSeT1 BNkgW323DgIpzRJn Fbiqr0bko8qhhSz3AcAh HNKkxlOfzHwxAVM4z9An Kf83I6VlnOdia1JsBsk1 lz09cTGma5C6kXX9 V1IpMXHvofuiuLZlcAjz IG4wTYIrluwcOIZezD7d BCUqB9q7NzApMdE1TIoe G9NfcwU7CCXhjEJb ALncZJA6P46wg2D5NFMn EDDyCGO8bWG1dH5bxMqg bjogbGVmdDsgdmVydGlj ZFqiPFlbR907XCSy wLhxWRAxyX0iLJJvjEXi dWrsIL4kYARtfntcVaFO RB5LFofiGqLLIkTGPVQD MO37DG49lVWrr9U9 hRJ0X7SwNVQvzajlszzz pHD4DXGvYWLosN55qAIw MCwjOc5im3X5v618CHHi JBOysA91Jj6egLbf MHQcoRAFtK5qjqsxd9ym fczcKqAwKADgZIy2EYs7 HXNvaByvRkYfSCH9LyY9 RZQ7iOGkbT1evDqe grxksK6pAsv+MDgvMzEv GTc5YNnrgSX+PHRkIHN0 eTwfMAtcJJWxmY9cBDLo N4h7AbWgCeR3UTkz E1VwKEWikvgqXy55kF8a WxNqPwL7MXrzD5UtfsF9 YWRtcMTgZUrqEHJ2K96y t7J6JPShPANvDBD6 cXE5eH3siDavwzmzbSDp dDsgdmVydGljYWwtYWxp O268UVManQwhDgP7JYla IOLkSQ87BA74dHUy q2V2qBV3B7HyVZSbovsk cgoxcPH5QWUoEVEbnV85 rEGtAXmgCa7rd2J0b064 RETsJUYzxP89Dc5u kGneVKVwnOPSwK3zfqes u2znqekkClUxGXByYWu1 AMx9YWUayFtsBgVyRQF2 CmB2KSV0xERvnD0l iOvfaoigjO8aAsx+TWFs ZTwvdGQ+RSLrFMR3zWff XYmrZEXnyV9iTIUuN8m3 MdUyMoK6LAneX3Ia EEAhipzxQm69hC2pQuMr YyC5FBvqH6OptjD4TJMg mMYgPYzmAYW9H65sz6H9 GWHwWDMvIUQ4qHN6 fD9uvTsmqcclwEOutYls prZfgLngJYdeCKmnG601 QQVcrJhgGxYkMDXoTI0h eTwvdGQ+PC33ma62 M4QwGjffCif3SPBiHGK5 qSO4sU0cDYHcHUyfn0Z3 lNS3B5AjafDqpc8pa6bc THSeCGuaS23llIJd h1M3UDRzrIR0TWZmhHdk KnJdeB54Hxn+PGNvbGdy i1WhHkxty6yhv1myiQs9 IjMwJSIgdmFsaWdu RDH5u5CmUs43T02lAOyf ZHRoPSIzMCUiIHZhbGln wg4fmD7nHc8+PGNvbCB3 nFI9rL0pJsWkQrE9 CRdmC511JoFixMPuGtrx q9enn2pioFt4HhOsPHVi lwXczAahESQ0i1OpVo17 R9ArhTyiy1VvHfp2 bs92sSKxa8X3zOD8G2Rx LPKmpcwcjUEbzDffQW3x GECwpdgrIFRknD0eZVEf L2o9CfAbBiR3IWyf U3PewwX3UCOnnGGpXWDx bLQLpD7bnrsup5eibtnw CsZdWTXbLWs9FYd6AIIb tPfaUaPhNUG6ZmB1 JHK4hJUubP9tyBsacqly qI6hLza+PBm8r6fjmMMq HJ0qwUJ5FX50ZE87vBPe p8R5oCQ9E1StOCHr azpccvckfOC4WGOaJDCx pY33Kj6agUkoWq9aTJSi XIF1YJUpbVIjM0BieX6a PhKhTEUxEBQzF8Cr bUWvOAofD392PMjmYbQ7 VFKaclPyT5XiEUKbyOzn QuA9v9Y5Ai6FZU08XZ16 GG50aPDlx6M0wKF0 T4BrUORycmuirossyIE4 PJCbAGKorH87Xf7ggFno Bm5wIFFtSIL4AMSvzLRv H6SzfQ4vGuVmRQXw AVNmN6YtsPBeYNvaI697 TZkyPaI8CENxxgUsG1Dh HMRdtDurEvZ4v4Q2Pu8K Ug23VN23CP45eQVj l1Q0aFG6V9RiVMCqqmxf laqquKK7KRRiDAPhbY58 Oc1aeZjtQj4wXMJsTIX1 JDIgzZLjC2KyiX4a HuNbRAPzPYFmN0BzpQBk ARnvS976GVoaFgB0NVXn xtVoE6PcIOEcsKwtTlH5 i6N8Jz4SVIagybv2 V3AtFvezcGB+LD15GKXv FW36jAAycAJqy8pmyEx5 YpHmLCLoQDI1fMrfOIbf k4ArKCAbZ14kaBYy c2U6 (more content not included)... Normal [facility] Auto Diffon 04-23-2021 Basophils/100 WBC (Bld) 0.1 % Normal 0.0-2.0 [facility] Comment on above: Order Comment: Order Added by Discern Expert. Performed By: #### 2 [id number], [id number], 2307068, [id number], [id number], [id number], [id number] #### [facility] [address] [place] [address] Basophils/Leukocytes Auto (Bld) [Pure # fraction] 0.0 E9/L Normal 0.0-0.2 [facility] Comment on above: Order Comment: Order Added by Discern Expert. Performed By: #### 2 [id number], [id number], 9176781, [id number], [id number], [id number], [id number] #### [facility] [address] [place] [address] 225[address] Eosinophils/100 WBC (Bld) 0.0 % Normal 0.0-8.0 [facility] Comment on above: Order Comment: Order Added by Discern Expert. Performed By: #### 2 868374, 0181345, 6184561, 81649138, [id number], [id number], [id number] #### [facility] [address] [place] [address] 11847 Eosinophils/Leukocytes Auto (Bld) [Pure # fraction] 0.0 E9/L Normal 0.0-0.5 [facility] Comment on above: Order Comment: Order Added by Discern Expert. Performed By: #### 2 873148, [id number], 4539626, 58460503, 61896587, 01734389, [id number] #### [facility] [address] [place] [address]6951 Lymphocytes/100 WBC (Bld) 11.3 % Low 14.0-50.0 [facility] Comment on above: Order Comment: Order Added by Discern Expert. Performed By: #### 2 808628, 8100464, 4338473, 02572057, 53298436, [id number], 4644824 #### [facility] [address] [place] [address] 22900 Lymphocytes/Leukocytes Auto (Bld) [Pure # fraction] 1.3 E9/L Normal 1.0-4.0 [facility] Comment on above: Order Comment: Order Added by Discern Expert. Performed By: #### 2 848043, 4012813, 5801370, 84826331, 75843999, 20006157, 8797763 #### [facility] [address] [place] [address] 64269 Monocytes/100 WBC (Bld) 4.0 % Normal 4.0-14.0 [facility] Comment on above: Order Comment: Order Added by Discern Expert. Performed By: #### 2 427179, 8873614, 1767522, 89864247, 66276064, 75873721, 7617937 #### [facility] [address] [place] [address] Monocytes/Leukocytes Auto (Bld) [Pure # fraction] 0.5 E9/L Normal 0.2-1.0 [facility] Comment on above: Order Comment: Order Added by Discern Expert. Performed By: #### 2 308801, 9760583, 1801043, 93621493, [id number], 98660665, [id number] #### [facility] [address] [place] [address] Neutrophils/100 WBC (Bld) 84.6 % High 36.0-75.0 [facility] Comment on above: Order Comment: Order Added by Discern Expert. Performed By: #### 2 630336, 1405624, 3257274, 36339352, 54552144, 13400756, 0658031 #### [facility] [address] [place] [address] Neutrophils/Leukocytes Auto (Bld) [Pure # fraction] 9.7 E9/L High 2.0-7.5 [facility] Comment on above: Order Comment: Order Added by Discern Expert. Performed By: #### 2 819865, 7787168, 8998825, 82086326, 80160582, 35523549, 5435474 #### [facility] [address] [place] [address] BMPon 04-23-2021 Anion gap [Moles/Vol] 12 mmol/L Normal 6-16 [facility] Comment on above: Performed By: #### 2 961413, 5401186, 5399457, 83460016, 54618901, 07683685, 6908164 #### [facility] [address] [place] [address] Calcium [Mass/Vol] 9.9 mg/dL Normal 8.9-11.1 [facility] Comment on above: Performed By: #### 2 379563, 6275312, 8203420, 36030865, 68989515, 39050334, 9287065 #### [facility] [address] [place] [address] Chloride [Moles/Vol] 105 mmol/L Normal 101-111 [facility] Comment on above: Performed By: #### 2 129325, 8897723, 3640429, 29805753, 05041444, 57959370, 5660875 #### [facility] [address] [place] [address] CO2 [Moles/Vol] 24 mmol/L Normal 21-31 [facility] Comment on above: Performed By: #### 2 576395, 1143114, 4047824, 91757407, 45204599, 77313100, 0459683 #### [facility] [address] [place] [address] Creatinine [Mass/Vol] 0.8 mg/dL Normal 0.5-1.3 [facility] Comment on above: Performed By: #### 2 817572, 9485797, 7991260, 20039012, 36155751, 59992838, 0547174 #### [facility] [address] [place] [address] Glucose [Mass/Vol] 136 mg/dL Normal 55-199 [facility] Comment on above: Result Comment: If t his glucose result represents a fasting glucose, interpretation should refer to the following reference range: 55-99 mg/dL Performed By: #### 2 557331, 0612610, 7172087, 95251930, 38345562, 88498216, 9096986 #### [facility] [address] [place] [address] Potassium [Moles/Vol] 4.5 mmol/L Normal 3.5-5.3 [facility] Comment on above: Performed By: #### 2 878151, 5121646, 5709510, 52453470, 49782193, 99033603, 4673748 #### [facility] [address] [place] [address] Sodium [Moles/Vol] 136 mmol/L Normal 135-145 [facility] Comment on above: Performed By: #### 2 098272, 3255253, 3159268, 85864713, 18027176, 02489726, 4427352 #### [facility] [address] [place] [address] Urea nitrogen [Mass/Vol] 18 mg/dL Normal 5-21 [facility] Comment on above: Performed By: #### 2 842608, 2642563, 9645520, 83027888, 17514418, 58449495, 0596192 #### [facility] [address] [place] [address] Urea nitrogen/Creatinine [Mass ratio] 22 No Units High 10-20 [facility] Comment on above: Performed By: #### 2 988248, 0851017, 8163226, 42403042, 37776083, 19754160, 2011766 #### [facility] [address] [place] [address] CBC w/ Auto Diffon 1 Erythrocyte distribution width (RBC) [Ratio] 13.7 % Normal 10.9-14.2 [facility] Comment on above: Performed By: #### 2 631683, 0374256, 4874869, 98734709, 30030753, 16419649, 0295096 #### [facility] [address] [place] [address] Hematocrit (Bld) [Volume fraction] 47.2 % Normal 37.7-49.0 [facility] Comment on above: Performed By: #### 2 798350, 5701935, 8116424, 90613699, 40530422, 71636124, 3573670 #### [facility] [address] [place] [address] Hemoglobin (Bld) [Mass/Vol] 15.5 g/dL Normal 13.5-17.5 [facility] Comment on above: Performed By: #### 2 713127, 1939853, 2928301, 93515887, 41884152, 94866278, 8895524 #### [facility] [address] [place] [address] [facility] ([facility]) [Entitic mass] 29.3 pg Normal 27.0-34.0 [facility] Comment on above: Performed By: #### 2 [id number], 1944213, 5435408, 66114106, [id number], [id number], [id number] #### [facility] [address] [place] [address] MCHC (RBC) [Mass/Vol] 32.8 g/dL Normal 31.4-36.0 [facility] Comment on above: Performed By: #### 2 581584, 5083520, 5480578, 66376154, 83732411, 83201707, [id number] #### [facility] [address] [place] [address] MCV (RBC) [Entitic vol] 89.2 fL Normal 80.0-100.0 [facility] Comment on above: Performed By: #### 2 057178, 5814956, 6847156, 60570842, 97600971, 19409753, 6637191 #### [facility] [address] [place] [address] Platelet mean volume (Bld) [Entitic vol] 8.5 fL Normal 6.4-10.8 [facility] Comment on above: Performed By: #### 2 649562, 9293498, 5011325, 00609507, 34675827, 24479090, 0914026 #### [facility] [address] [place] [address] Platelets (Bld) [#/Vol] 276.0 E9/L Normal 150.0-500.0 [facility] Comment on above: Performed By: #### 2 997259, 9425976, 0369267, 18090429, 65274875, 91986377, 1483450 #### [facility] [address] [place] [address] RBC (Bld) [#/Vol] 5.3 E12/L Normal 4.3-5.9 [facility] Comment on above: Performed By: #### 2 732611, 8660822, 6276211, 65146672, 48065750, 68276217, 0062491 #### [facility] [address] [place] [address] WBC corrected for nucl RBC Auto (Bld) [#/Vol] 11.4 E9/L High 4.0-11.0 [facility] Comment on above: Performed By: #### 2 786557, 0113415, 9218755, 97954680, 22779365, 43320260, 8085691 #### [facility] [address] [place] [address] Consent for Treatmenton 04-01 Consent for Treatment [id number] 10 [id number] #1.00CD:127 Normal [facility] D-Dimeron 04-23-2021 Fibrin D-dimer FEU (PPP) [Mass/Vol] 415 [id number] Normal 215-500 [facility] Comment on above: Result Comment: This assay is intended for use as an aid in the diagnosis of DVT or PE. These conditions cannot be excluded with certainty solely on the basis of a D-dimer concentration being within the reference range This D-Dimer assay may be used in conjunction with a non-high clinical pretest probability assessment to exclude deep-vein thrombosis(DVT). For exclusion of venous thrombosis or pulmonary embolism the analyte D-Dimer should not be used as an aid in patients with: Therapeutic dose anticoagulant therapy for >24 hours Fibrinolytic therapy within previous 7 days Trauma or surgery within previous 4 weeks Disseminated malignacies Aortic aneurysm Sepsis, severe infections, pneumonia, severe skin infections Liver cirrhosis Performed By: #### 2 824873, 7441738, 9608536, 31157547, 27201846, 96000624, 7866164 #### [facility] [address] [place] [address] Discharge Instructionson Discharge Instructions [id number] 107 [id number]#1.00CD:127 Normal [facility] ED Clinical Summaryon 2020 ED Clinical Summary [facility] [address] [place], [place] [address] ED Clinical Summary Person Information Name: DALLIN DAMON/[facility] [place]_Jarod Age: 60 Years : 1960 Sex: Male Language: Mongolian PCP: Dallin Pena DO Marital Status: Visit Id: Visit Reason: Chest pain; CHEST PAIN & SOB Speciality: Acuity: 3 Enc Type: Emergency Med Service: Emergency Arrival: 04/22/2021 23:14:06 Discharge: 04/23/2021 04:16:43 LOS: 000 05:02 Checkin: 04/22/2021 23:14:06 Checkout: 04/23/2021 04:16:43 Dispo Type: Home (Routine DC) EVENTS: Event Name Event Status Request Date/Time Start Date/Time Complete Date/Time Arrive Complete 04/22/2021 23:14:06 04/22/2021 23:14:06 04/22/2021 23:14:06 Document Home Meds Request 04/22/2021 23:14:06 Triage Complete 04/22/2021 23:14:06 04/22/2021 23:28:33 04/22/2021 23:28:33 EKG Complete 04/22/2021 23:16:48 04/22/2021 23:22:24 Registration Complete 04/22/2021 23:23:52 04/22/2021 23:23:52 04/22/2021 23:23:52 Reg Complete Request 04/22/2021 23:23:52 Pending Labs Request 04/22/2021 23:40:39 Lab Complete 04/22/2021 23:40:39 04/23/2021 00:25:06 Patient Care Request 04/22/2021 23:40:39 RT Request 04/22/2021 23:40:39 X-Ray Complete 04/22/2021 23:40:39 04/23/2021 01:06:08 04/23/2021 01:06:44 Pending Labs Complete 04/23/2021 00:09:45 04/23/2021 00:09:45 04/23/2021 00:25:07 Lab Complete 04/23/2021 00:09:45 04/23/2021 00:09:45 04/23/2021 00:25:07 Pending Labs Complete 04/23/2021 00:16:18 04/23/2021 00:16:18 04/23/2021 00:16:28 Lab Complete 04/23/2021 00:16:18 04/23/2021 00:16:18 04/23/2021 00:16:28 Bed Assign Complete 04/23/2021 00:46:58 04/23/2021 00:46:58 04/23/2021 00:46:58 Dr Exam Complete 04/23/2021 00:46:58 04/23/2021 00:55:44 04/23/2021 00:55:44 RN Exam Complete 04/23/2021 00:46:58 04/23/2021 01:40:44 04/23/2021 01:40:44 Registration Request 04/23/2021 00:55:44 Wet Read Request 04/23/2021 01:06:44 Pending Labs Cancel 04/23/2021 01:43:34 04/23/2021 02:07:42 Lab Cancel 04/23/2021 01:43:34 04/23/2021 02:07:42 Pending Labs Complete 04/23/2021 02:10:20 04/23/2021 02:10:20 04/23/2021 02:26:28 Lab Complete 04/23/2021 02:10:20 04/23/2021 02:10:20 04/23/2021 02:26:28 Discharge Complete 04/23/2021 03:39:34 04/23/2021 04:17:06 04/23/2021 04:17:06 Transfer Complete 04/23/2021 04:17:06 04/23/2021 04:17:06 04/23/2021 04:17:06 AD[address]: [address] [place] [place] [address] PHYS DOC NOTES: MEDICAL INFORMATION: Prescriptions Given: PATIENT EDUCATION INFORMATION: Instructions: Cardiopulmonary Exercise Stress Test, Olkg-bf-Tqxn; Shortness of Breath, Adult, Bajg-sy-Nwuk Follow up: With: Address: When: Dallin Pena [address] [place] [address] Business (1) In 3 days 04/26/2021 Comments: Keep your Sunday appointment DIAGNOSIS: 1:Shortness of breath Normal [facility] ED Note-Physicianon 04-23-20 ED Note-Physician Basic Information Time Seen: Pavan King MD 04/23/2021 00:55 Chief Complaint complains of chest pain for the last three days. denies nausea or vomiting. denies sob History of Present Illness 60-year-old male presents with complaint of some intermittent shortness of breath along with a generalized weakness. The symptoms have been present since at least Sunday. Patient states that he was at [employer] Sunday and had a brief sharp right anterior chest pain that lasted maybe seconds. Then on Sunday began noticing the shortness of breath which was mild and there is general weakness. In the first part of the week he did have some steroid injections on the plantar surface of his feet and was placed on some oral steroids at home. Patient denies hypertension, diabetes, high cholesterol, or smoking. He is uncertain with regard to family history. Both his mother and father have a history of coronary disease but he is uncertain as the age of onset. No history of any DVT or PE in the past. Review of Systems A 10 point review of systems is negative except as noted above. Medical and Surgical History: Reviewed and noted Social history: Lives at home Tobacco: Denies Physical Exam Vitals & Measurements T: 36.8 ?C (Oral) HR: 53(Monitored) RR: 18 BP: 143/93 SpO2: 96% HT: 174 cm HT: 174.0 cm WT: 72.7 kg WT: 72.7 kg BMI: 24.01 This is a well-developed 60-year-old male he is alert and oriented x3 does not appear to be in any acute distress. His skin is warm and dry his color is pink on room air. Chest wall is nontender to palpation. Heart sounds are somewhat distant but regular without murmur or gallop. Lungs are clear to auscultation there is good air entry no adventitious sounds. There is full inspiration without splinting. The abdomen is soft and nontender. There is no redness or swelling about the feet. There is no leg edema. His speech is normal. Medical Decision Making All of the passive testing is unremarkable with regard to the heart and lungs. I did suggest to him that a stress test would be the next dynamic measure that I would be considering. He will bring this to the attention of his family doctor who he is going to see on Sunday.[id number] Assessment/Plan 1. Shortness of breath (R06.02: Shortness of breath) Orders: Automated Diff Basic Metabolic Panel CBC w/ Auto Diff D-Dimer ECG 12 Lead Adult ED Cardiac Monitoring eGFR Oxygen Saturation Oxygen Therapy PT & PTT Saline Lock Insert Troponin 0 Hr. Troponin 3 Hr. Troponin 6 Hr. Troponin 9 Hr. XR Chest Single View Disposition Plan Patient Discharge Condition Stable Discharge Disposition Home Discharge Prescription List Prescriptions No active prescription medications Follow-up With When Contact Information Dallin Pena In 3 days 04/26/2021 EDT [address] [place] [address]- [facility] (1) Additional Instructions: Keep your Sunday appointment Patient Education Cardiopulmonary Exercise Stress Test, Vgau-ou-Qfxp Shortness of Breath, Adult, Lfbf-rc-Hpac Problem List/Past Medical History Ongoing No qualifying data Historical No qualifying data Medications Inpatient No active inpatient medications Home No active home medications Allergies No Known Allergies Lab Results WBC: 11.4 E9/L High (04/23/21 00:06:00) RBC: 5.3 E12/L (04/23/21 00:06:00) Hgb: 15.5 gm/dL (04/23/21 00:06:00) Hct: 47.2 % (04/23/21 00:06:00) MCV: 89.2 fL (04/23/21 00:06:00) MCH: 29.3 pg (04/23/21 00:06:00) MCHC: 32.8 gm/dL (04/23/21 00:06:00) RDW: 13.7 % (04/23/21 00:06:00) Platelet: 276 E9/L (04/23/21 00:06:00) MPV: 8.5 fL (04/23/21 00:06:00) Neutro Auto: 84.6 % High (04/23/21 00:06:00) Lymph Auto: 11.3 % Low (04/23/21 00:06:00) [place]ory Auto: 4 % (04/23/21 00:06:00) Eos Auto: 0 % (04/23/21 00:06:00) Basophil Auto: 0.1 % (04/23/21 00:06:00) Neutro Absolute: 9.7 E9/L High (04/23/21 00:06:00) Lymph Absolute: 1.3 E9/L (04/23/21 00:06:00) [place]ory Absolute: 0.5 E9/L (04/23/21 00:06:00) Eos Absolute: 0 E9/L (04/23/21 00:06:00) Basophil Absolute: 0 E9/L (04/23/21 00:06:00) PT: 11.5 second(s) (04/23/21 00:06:00) INR: 1 (04/23/21 00:06:00) PTT: 30.3 second(s) (04/23/21 00:06:00) D-Dimer: 415 ng/mL FEU (04/23/21 00:06:00) Glucose Lvl: 136 mg/dL (04/23/21 00:06:00) BUN: 18 mg/dL (04/23/21 00:06:00) Creatinine: 0.8 mg/dL (04/23/21 00:06:00) eGFR: >60 (04/23/21 00:06:00) eGFR AA: >60 (04/23/21 00:06:00) BUN/Creat Ratio: 22 High (04/23/21 00:06:00) Sodium Lvl: 136 mmol/L (04/23/21 00:06:00) Potassium Lvl: 4.5 mmol/L (04/23/21 00:06:00) Chloride: 105 mmol/L (04/23/21 00:06:00) CO2: 24 mmol/L (04/23/21 00:06:00) AGAP: 12 mEq/L (04/23/21 00:06:00) Calcium Lvl: 9.9 mg/dL (04/23/21 00:06:00) Troponin: 2.9 pg/mL Low (04/23/21 02:34:00) Diagnostic Results XR Chest Single View * Preliminary * 04/23/21 02:38:56 NEGATIVE: Single AP view of the chest shows no active disease Read By: Pavan King MD Normal [facility] Comment on above: Result Comment: Elec tronically Signed By: Pavan King MD\.br\Date and Time Signed: 04/23/21 03:35 EDT ED Patient Education Noteon 04-23-2021 ED Patient Education Note Pulmonary Medicine Cardiopulmonary Exercise Stress Test Cardiopulmonary exercise testing (CPET) is a test that checks how the heart and lungs react to exercise. This is called exercise capacity. During this test, you will walk or run on a treadmill or pedal on a stationary bike. As you walk or run, tests will be done on your heart and lungs. You may have this test to: ? Find out why you are short of breath. ? Check for exercise intolerance. ? See how your lungs work. ? See how your heart works. ? Check whether your heart or lungs are responding to treatments. ? Check if you have a heart or lung problem. ? Check if you are healthy enough to have surgery. Tell your doctor about: ? Any allergies you have. ? All medicines you are taking. ? Any problems you or family members have had with anesthetic medicines. ? Any blood disorders you have. ? Any surgeries you have had. ? Any medical conditions you have. ? Whether you are or may be . What are the risks? Generally, this is a safe test. However, problems may occur, including: ? Chest pain. ? Shortness of breath. ? Leg pain. ? Irregular heartbeat. What happens before the procedure? ? Follow instructions from your doctor about what you cannot eat or drink. ? Ask your doctor about changing or stopping your normal medicines. ? Wear loose, comfortable clothing and shoes. ? If you use an inhaler, bring it with you to the test. What happens during the procedure? ? A blood pressure cuff will be placed on your arm. ? Stick-on patches (electrodes) will be placed on your chest. They will be attached to an EKG machine. ? A clip-on monitor that shows the amount of oxygen in your blood will be placed on your finger (pulse oximeter). ? A clip will be placed on your nose and a mouthpiece will be placed in your mouth. This may be held in place with a headpiece. You will breathe through the mouthpiece during the test. ? You will be asked to start exercising. You will be closely watched while you exercise. ? The amount of effort for your exercise will be slowly increased. ? During exercise, the test will measure: ? Your heart rate. ? Your heart rhythm. ? Your oxygen blood level. ? The amount of oxygen and carbon dioxide that you breathe out. ? The test will end when: ? You have finished the test. ? You have reached your maximum ability to exercise. ? You have chest or leg pain, dizziness, or shortness of breath. The test may vary among doctors and hospitals. What can I expect after the test? Your blood pressure, heart rate, breathing rate, and blood oxygen level will be monitored until you leave the hospital or clinic. Summary ? Cardiopulmonary exercise testing (CPET) is a test that checks how your heart and lungs react to exercise. ? Follow your doctor's instructions about food and drink, and what medicines to change or stop. ? During this test, you will walk or run on a treadmill or pedal on a stationary bike. Tests will be done as you run or walk. This information is not intended to replace advice given to you by your health care provider. Make sure you discuss any questions you have with your health care provider. Document Released: 09/05/2010 Document Revised: 12/04/2019 Document Reviewed: 05/22/2019 [email or web address] Patient Education ? 2020 [email or web address] Shortness of Breath, Adult Shortness of breath means you have trouble breathing. Shortness of breath could be a sign of a medical problem. Follow these instructions at home: ? Watch for any changes in your symptoms. ? Do not use any products that contain nicotine or tobacco, such as cigarettes, e-cigarettes, and chewing tobacco. ? Do not smoke. Smoking can cause shortness of breath. If you need help to quit smoking, ask your doctor. ? Avoid things that can make it harder to breathe, such as: ? Mold. ? Dust. ? Air pollution. ? Chemical smells. ? Things that can cause allergy symptoms (allergens), if you have allergies. ? Keep your living space clean. Use products that help remove mold and dust. ? Rest as needed. Slowly return to your normal activities. ? Take oglz-brs-otenwsf and prescription medicines only as told by your doctor. This includes oxygen therapy and inhaled medicines. ? Keep all follow-up visits as told by your doctor. This is important. Contact a doctor if: ? Your condition does not get better as soon as expected. ? You have a hard time doing your normal activities, even after you rest. ? You have new symptoms. Get help right away if: ? Your shortness of breath gets worse. ? You have trouble breathing when you are resting. ? You feel light-headed or you pass out (faint). ? You have a cough that is not helped by medicines. ? You cough up blood. ? You have pain with breathing. ? You have pain in your chest, arms, shoulders, or belly (abdomen). ? You have a fever. ? (more content not included)... Normal [facility] ED Patient Summaryon 021 ED Patient Summary [place] [id number] Patient Discharge Instructions Person Information Name: DALLIN DAMON Age: 60 Years Arrival Date: 04/22/2021 23:14:06 Discharge Diagnosis: 1:Shortness of breath Primary Care Physician: Dallin Pena DO Provider Information Primary Provider: Pavan King MD Advanced Angio Technologist:None The exam and treatment you received in the Emergency Department were for an urgent problem and are not intended as complete care. It is important that you follow up with a doctor, nurse practitioner, or physician?s preschool assistant teacher for ongoing care. If your symptoms become worse or you do not improve as expected and you are unable to reach your usual health care provider, you should return to the Emergency Department. We are available 24 hours a day. DALLIN DAMON has been given the following list of patient education materials, prescriptions and follow-up instructions: Follow-up Instructions: With: Address: When: Dallin Pena [address] [place] [address] Business (1) In 3 days 04/26/2021 Comments: Keep your Sunday appointment In the event that this physician does not participate in your insurance network, please consult with your insurance company to find a nearby participating provider. Patient Education Materials: Cardiopulmonary Exercise Stress Test, Shht-vk-Ddyz; Shortness of Breath, Adult, Kitz-of-Yfsc A MESSAGE TO ALL PATIENTS REGARDING OPIOIDS PRESCRIPTION OPIOIDS: WHAT YOU NEED TO KNOW Prescription opioids can be used to help relieve zyrzlmnr-mw-crwrbe pain and are often prescribed following a surgery or injury, or for certain health conditions. These medications can be an important part of the treatment but also come with serious risks. It is important to work with your healthcare provider to make sure you are getting the safest, most effective care. WHAT ARE THE RISKS AND SIDE EFFECTS OF OPIOID USE? Prescription opioids carry serious risks of addiction and overdose, especially with prolonged use. An opioid overdose, often marked by slowed breathing, can cause sudden . The use of prescription opioids can have a number of side effects as well, even when taken as directed: ? Tolerance?meaning you might need to take more of the medication for the same pain relief ? Physical dependence?meaning you have symptoms of withdrawal when a medication is stopped ? Increased sensitivity to pain ? Constipation ? Nausea, vomiting, and dry mouth ? Sleepiness and dizziness ? Confusion ? Depression ? Low levels of testosterone that can result in lower sex drive, energy, and strength ? Itching and sweating RISKS ARE GREATER WITH: ? History of drug misuse, substance use disorder, or overdose ? Mental health conditions (such as depression or anxiety) ? Sleep apnea ? Older age (65 years and older) ? Avoid alcohol while taking prescription opioids. Also, unless specifically advised by your health care provider, medications to avoid include: ? Benzodiazepines (such as Xanax or Valium) ? Muscle relaxants (such as Soma or Flexeril) ? Hypnotics (such as Ambien or Lunesta) ? Other prescription opioids KNOW YOUR OPTIONS Talk to your health care provider about ways to manage your pain that don?t involve prescription opioids. Some of these options may actually work better and have fewer risks and side effects. Options may include: ? Pain relievers such as acetaminophen, ibuprofen, and naproxen ? Some medication that are also used for depression or seizures ? Physical therapy and exercise ? Cognitive behavioral therapy, a psychological, goal-directed approach, in which patients learn how to modify physical, behavioral, and emotional triggers of pain and stress. IF YOU ARE PRESCRIBED OPIOIDS FOR PAIN: ? Never take opioids in greater amounts or more often than prescribed. ? Follow up with your primary health care provider. o Work together to create a plan on how to manage your pain. o Talk about ways to help manage your pain that don?t involve prescription opioids. o Talk about any and all concerns and side effects. ? Help prevent misuse and abuse o Never sell or share prescription opioids. o Never use another person?s prescription opioids. ? Store prescription opioids in a secure place and out of reach of others (this may include visitors, children, friends, and family). ? Safely dispose of unused prescription opioids: Find your community drug take-back program or your pharmacy mail-back program, or flush them down the toilet, following guidance from the Food and Drug Administration (www.fda.gov/Drugs/R esourcesForYou). ? Visit www.cdc.gov/drugover dose to learn about the risks of opioids abuse and overdose. ? If you believe you may be struggling with addiction, tell your health school childcare attendant (more content not included)... Normal [facility] Monitor Recordon 04-23-2021 Monitor Record [id number] 5#1.00CD:127 Normal [facility] PT & PTTon 04-23-2021 aPTT Coag (PPP) [Time] 30.3 second(s) Normal 25.1-36.5 [facility] Comment on above: Result Comment: Hepa rin therapeutic range (represented by Anti-Factor Xa activity of 0.2 - 0.4 U/mL) corresponds to PTT of 56.6 - 109.0 sec. Performed By: #### 2 [id number], 6651117, 0069783, 09134134, 68361543, [id number], [id number] #### [facility] [address] [place] [address] INR Coag (PPP) [Relative time] 1.0 {INR} Invalid Interpretation Code [facility] Comment on above: Result Comment: INR results are specifically intended to assess patients stabilized on long-term Anticoagulation therapy suggested INR?s ?Less Intensive Anticoagulation? 2.0 ? 3.0 Conventional Range 3.0 ? 4.5 Performed By: #### 2 639165, 3290660, 4037532, 32230529, 24971869, [id number], [id number] #### [facility] [address] [place] [address] PT Coag (PPP) [Time] 11.5 second(s) Normal 10.2-12.9 [facility] Comment on above: Performed By: #### 2 616501, 4436835, 5079559, 65298937, 45042238, 65478045, [id number] #### [facility] [address] [place] [address] Troponin 0 Hr.on 04-23-2021 Troponin I.cardiac [Mass/Vol] 2.90 pg/mL Low 15.90-38.40 [facility] Comment on above: Result Comment: The 95% CI (Confidence Interval) PPV (Positive Predictive Value) for myocardial infarction in females is 38 pg/mL, in males 51 pg/mL. The results should be used in conjunction with clinical conditions of myocardial infarction. (Access High Sensitivity Troponin I Instructions For Use, [employer], May 2018) Performed By: #### 2 210611, 5475065, 3822828, 87310081, 40102316, 80654276, [id number] #### [facility] [address] [place] [address] Troponin 3 Hr.on 04-23-2021 Troponin I.cardiac [Mass/Vol] 2.90 pg/mL Low 15.90-38.40 [facility] Comment on above: Result Comment: The 95% CI (Confidence Interval) PPV (Positive Predictive Value) for myocardial infarction in females is 38 pg/mL, in males 51 pg/mL. The results should be used in conjunction with clinical conditions of myocardial infarction. (Access High Sensitivity Troponin I Instructions For Use, [employer], May 2018) Performed By: #### 1 [id number] #### [facility] [address] [place] [address] XR Chest Single Viewon 04-23 XR Chest Single View Exam Date/Time: 04/23/2021 01:06 EDT Reason for Exam: Chest pain Report IMPRESSION: NO ACTIVE LUNG DISEASE. EXAM: XR Chest Single View CLINICAL HISTORY: Shortness of breath Chest pain COMPARISONS: None FINDINGS: The heart, mediastinum and pulmonary vasculature are within normal limits. Visualized lung núñez are clear. Bones unremarkable. FINAL REPORT Dictated: 04/23/2021 1:00 pm Cale Kenyon MD Signed (Electronic Signature): 04/23/2021 1:00 pm Signed by: Cale Kenyon MD Transcribed by: ARTUR Technologist: CAROLINE Damon [facility] eGFRon 04-23-2021 GFR/1.73 sq M.predicted among blacks MDRD (S/P/Bld) [Vol rate/Area] mL/min/{1.73_m2} Normal >=59 [facility] Comment on above: Order Comment: Order added by Discern Expert. Result Comment: eGFR is race adjusted. AA=. Performed By: #### 2 [id number], [id number], 9168034, [id number], [id number], [id number], [id number] #### [facility] [address] [place] [address] GFR/1.73 sq M.predicted among non-blacks MDRD (S/P/Bld) [Vol rate/Area] mL/min/{1.73_m2} Normal >=59 [facility] Comment on above: Order Comment: Order added by Discern Expert. Result Comment: Pharmacometrician yonatan kidney disease could be indicated at eGFR's of less than 60 mL/min/1.73m2. Kidney failure is indicated at less than 15 mL/min/1.73m2. Performed By: #### 2 [id number], [id number], [id number], [id number], [id number], [id number] #### [facility] [address] [place] [address] Registrationon 03-30-2021 Registration [id number]# 1.00CD:127 [facility] Consenton 02-15-2021 Consent [id number] #1.00CD:127 [facility] CBC Auto Differentialon 07-01 Basophils (Bld) [#/Vol] 0.00 10*3/uL [place] Basophils/100 WBC (Bld) 1 % 0 - 2 % [place] Differential Type YES [place] Eosinophils (Bld) [#/Vol] 0.50 10*3/uL [place] Eosinophils/100 WBC (Bld) 6 % High 0 - 5 % [place] Erythrocyte distribution width (RBC) [Ratio] 13.4 % 12.1 - 15.2 % [place] Hematocrit (Bld) [Volume fraction] 42.2 % 41 - 53 % [place] Hemoglobin (Bld) [Mass/Vol] 14.3 g/dL 13.5 - 17.5 g/dL [place] Lymphocytes (Bld) [#/Vol] 2.90 10*3/uL [place] Lymphocytes/100 WBC (Bld) 33 % 13 - 44 % [place] MCH (RBC) [Entitic mass] 29.9 pg 26 - 34 pg [place] MCHC (RBC) [Mass/Vol] 33.8 g/dL 31 - 37 g/dL [place] MCV (RBC) [Entitic vol] 88.5 fL 80 - 100 fL [place] Monocytes (Bld) [#/Vol] 0.70 10*3/uL [place] Monocytes/100 WBC (Bld) 8 % 5 - 9 % [place] Platelet mean volume (Bld) [Entitic vol] NOT REPORTED 6 - 12 fL [place] Platelets (Bld) [#/Vol] NOT REPORTED [place] Platelets (Bld) [#/Vol] 286 10*3/uL [place] RBC (Bld) [#/Vol] 4.77 10*6/uL 4.5 - 5.9 m/uL [place] RBC morphology finding Nom (Bld) NOT REPORTED [place] Segmented neutrophils/100 WBC (Bld) 52 % 39 - 75 % [place] Segs Absolute 4.70 [place] WBC (Bld) [#/Vol] 8.9 10*3/uL [place] WBC (Bld) [#/Vol] NOT REPORTED per 100 WBC [place] WBC Morphology NOT REPORTED [place] Clostridium Difficile Toxin/ Antigenon 07-10-2019 C DIFF AG + TOXIN Positive Abnormal NEGATIVE [place] Specimen Description .FECES [place] Comprehensive Metabolic Pane jesse 07-10-2019 Albumin [Mass/Vol] 4.1 g/dL 3.5 - 5.2 g/dL [place] Albumin/Globulin [Mass ratio] NOT REPORTED [place] ALP [Catalytic activity/Vol] 107 U/L 40 - 129 U/L [place] ALT [Catalytic activity/Vol] 24 U/L 5 - 41 U/L [place] Anion gap [Moles/Vol] 8 mmol/L Low 9 - 17 mmol/L [place] AST [Catalytic activity/Vol] 28 U/L <40 [place] Bilirubin Ql (U) 0.48 mg/dL 0.3 - 1.2 mg/dL [place] Bun/Cre Ratio 17 [place] Calcium [Mass/Vol] 10.2 mg/dL 8.6 - 10. 4 mg/dL [place] Chloride [Moles/Vol] 102 mmol/L 98 - 10 7 mmol/L [place] CO2 [Moles/Vol] 28 mmol/L 20 - 31 mmol/L [place] Creatinine [Mass/Vol] 0.82 mg/dL 0.7 - 1.2 mg/dL [place] GFR >60 >60 mL/min [place] GFR Non- >60 >60 mL/min [place] GFR/1.73 sq M predicted among non-blacks MDRD (S/P/Bld) [Vol rate/Area] NOT REPORTED [place] GFR/1.73 sq M predicted among non-blacks MDRD (S/P/Bld) [Vol rate/Area] [place] Comment on above: Average GFR for 50-5 9 years old: 93 mL/min/1.73sq m Chronic Kidney Disease: <60 mL/min/1.73sq m Kidney failure: <15 mL/min/1.73sq m eGFR calculated using average adult body mass. Additional eGFR calculator available at: http://www.Skype/multiple_crcl_2011.htm Glucose [Mass/Vol] 101 mg/dL High 70 - 99 mg/dL [place] Potassium [Moles/Vol] 4.3 mmol/L 3.7 - 5.3 mmol/L [place] Protein [Mass/Vol] 7.4 g/dL 6.4 - 8.3 g/dL [place] Sodium [Moles/Vol] 138 mmol/L 135 - 144 mmol/L [place] Urea nitrogen [Mass/Vol] 14 mg/dL 6 - 20 mg/dL [place] Otheron 07-10-2019 Immature granulocytes (Bld) [#/Vol] NOT REPORTED 0 % [place] Interpretation and review of laboratory results Abnormal [place] Interpretation and review of laboratory results Abnormal [place] Urinalysison 07-10-2019 Bilirubin Urine Negative NEGATIVE [place] Color, UA YELLOW YELLOW [place] Glucose, Ur Negative NEGATIVE [place] Ketones Ql (U) TRACE Abnormal NEGATIVE [place] Leukocyte esterase Test strip Ql (U) Negative NEGATIVE [place] Nitrite, Urine Negative NEGATIVE [place] pH, UA 6.0 [place] Protein (U) [Mass/Vol] Negative NEGATIVE [place] Specific [place], UA 1.015 [facility] [place], [place] Turbidity UA CLEAR CLEAR [place] Urinalysis Comments [place] Urine Hgb Negative NEGATIVE [place] Urobilinogen, Urine Normal Normal [place] Social History Date Type Detail Facility Start: 07-03-2023 Tobacco use panel [facility]HELE [facility] [employer] Start: 01-04-2023 End: 07-03-2023 Alcohol intake Lifetime non-drinker (finding) [facility] Work Phone: Start: 12-25-2022 End: 01-18-2023 Exposure to SARS-CoV-2 (event) Not sure [facility] Work Phone: Start: 04-25-2021 End: 07-03-2023 Cigarettes smoked current (pack per day) - Reported [employer] Phone: Start: 04-25-2021 End: 04-26-2022 Tobacco use and exposure Never used [employer] Start: 04-25-2021 History SDOH Financial 4 [employer] Phone: Start: 04-25-2021 History SDOH Food Worry 1 [employer] Phone: Start: 07-10-2019 End: 04-26-2022 Tobacco smoking status NHIS Former smoker [place] Start: 06-24-1974 End: 06-24-1994 History of tobacco use Current smoker [facility] [employer] [place] Start: 06-24-1974 End: 06-24-1994 History of tobacco use Cigarette Smoker [facility] Work Phone: Start: 1960 Sex Assigned At Not on file [place] How hard is it for y ou to pay for the very basics like food, housing, medical care, and heating Not very hard [facility] Patient Health Questionnaire 9 item (PHQ-9) total score [Reported] 0 [facility] (I/We) worried wheth er (my/our) food would run out before (I/we) got money to buy more. Never true [facility] At any time in the p ast 12 months, were you homeless or living in [facility] [including now]? No [facility] Vital Signs Date Time Vital Sign Value Performing Clinician Gurpreet sandoval 01-18-2023 19:25-0400 Body height 170.2 cm Marine Cook DO Work Phone: [facility] 01-18-2023 19:25-0400 Body mass index (BMI) [Ratio] 26.94 kg/m2 Marine Cook DO Work Phone: [facility] 01-18-2023 19:25-0400 Body weight 78.02 kg Marine Raz DO Work Phone: [facility] 01-18-2023 19:20-0400 Body temperature 97.59 [degF] Marine Cook DO Work Phone: [facility] 01-18-2023 19:20-0400 Diastolic blood pressure 90 mm[Hg] Marine Cook DO Work Phone: [facility] 01-18-2023 19:20-0400 Heart rate 104 /min Marine Cook DO Work Phone: [facility] 01-18-2023 19:20-0400 Respiratory rate 16 /min Darryl Morris DO Work Phone: [facility] 01-18-2023 19:20-0400 SaO2% (BldA) [Mass fraction] 97 % Marine Cook DO Work Phone: [facility] 01-18-2023 19:20-0400 Systolic blood pressure 137 mm[Hg] Marine oCok DO Work Phone: [facility] 01-18-2023 14:00-0400 Diastolic blood pressure 72 mm[Hg] Darryl Morris DO Work Phone: [facility] 01-18-2023 14:00-0400 Heart rate 97 /min Darryl Salesmi DO Work Phone: [facility] 01-18-2023 14:00-0400 SaO2% (BldA) [Mass fraction] 95 % Darryl Morris DO Work Phone: [facility] [employer] 01-18-2023 14:00-0400 Systolic blood pressure 100 mm[Hg] Darryl Morris DO Work Phone: [facility] [employer] 01-18-2023 13:00-0400 Body temperature 97.11 [degF] Darryl Morris DO Work Phone: [facility] [employer] 01-18-2023 06:23-0400 Body height 172.7 cm Darryl Morris DO Work Phone: [facility] [employer] 01-18-2023 06:23-0400 Body mass index (BMI) [Ratio] 25.09 kg/m2 Darryl Morris DO Work Phone: [email or web address] 01-18-2023 06:23-0400 Body weight 74.84 kg Darryl Morris DO Work Phone: [facility] [employer] 07-10-2019 17:09-0400 BMI (Body Mass Index) 23.26 kg/m2 [facility] Yamil Mercmiller [facility], [place] 07-10-2019 17:09-0400 Body Temperature 98.29 [degF] [facility] [employer] [facility], [place] 07-10-2019 17:09-0400 Body weight 69.4 kg [facility] [facility] [place] 07-10-2019 17:09-0400 BP Diastolic 79 mm[Hg] [facility] [place] 07-10-2019 17:09-0400 BP Systolic 130 mm[Hg] [facility] [employer] [facility], [place] 07-10-2019 17:09-0400 Pulse (Heart Rate) 70 /min [facility] [employer] [facility], [place] 07-10-2019 17:09-0400 Pulse Oximetry 98 % [facility] 07-10-2019 17:09-0400 Respiratory Rate 18 /min Veselin Yamil [facility] [place] [place] Clinical Notes 05-02-2021 to 09-26-2023 Dorcas Guerra [employer] - 09/26/2023 3:45 PM Lee Astudillo RN - 01/18/2023 8:30 PM EDTDischarge Teresa Hannah RN - 01/18/2023 7:10 AM EDTMmckenna Hannah RN - 01/18/2023 6:58 AM EDT Note Date & Type Note Facility 09-26-2023 History of Presen t illness Narrative [facility] Date: 09/26/2023 Patient Name: Dallin Damon : 1960 Left message on answering machine regarding pt missed appointment. Pt reminded of next appointment on 10/03 at 4:45 Dorcas Guerra [employer] Date: 09/26/2023 documented in this encounter [facility] 01-18-2023 History of Presen t illness Narrative Dressings on pt left arm changed with nonadherent and transparent dressing. Leg bag applied to catheter. Pt to go home with it until follow up appt with surgeon. documented in this encounter [facility] Work Phone: 01-18-2023 Hospital Discharg e instructions Brandi Lopez RN - 01/18/2023 12:52 PM EDT POST-OPERATIVE INSTRUCTIONS FOR ROBOTIC INGUINAL HERNIA REPAIR - your surgery went well: - do not remove the dressings on all incisionsstay on for at least 2 weeks A small amount of swelling and bruising and puffiness of the groin and scrotum in men is to be expected. Call the office if you experience fevers over 101 or difficulty urinating - do not go longer than 6-8 hours without urinating Leave the scrotal support on overnight , ok to remove in the morning, do not have to put it back on Expect pulling and tugging from the left hip to the pubic bone this is normal and temporary Eat lightly for the rest of the day like soups or pudding or mashed potatoes. Regular diet after you have a bowel movement. You may shower anytime after 24 hours after arriving home. Wash incisions gently, and pat them dry. Do not rub your incisions. Expect hardness and lumpiness around incisions General guidelines for activity: Avoid strenuous activity or lifting anything heavier than 20 pounds for 6 weeks Slower paced walking is encouraged. Ok to climb stairs Do not drive for one week and while taking your narcotic pain medicine. Ice pack to areas of pain helps Take tylenol or motrin for minor pain You will have bruising and swelling from your lipoma incisions- can alternate motrin with the percocet for pain. Take the stool softener over the counter colace to prevent constipation. Take Miralax or Magnesium Citrate or Metamucil or Milk of Magnesia if needing stronger laxative- take laxative if no bowel movement 2-3 days after surgery SAME DAY SURGERY DISCHARGE INSTRUCTIONS 1. Do not drive or operate hazardous machinery for 24 hours. 2. Do not make important personal or business decisions for 24 hours. 3. Do not drink alcoholic beverages for 24 hours. 4. Do not smoke tobacco products for 24 hours. 5. Eat light foods (Jell-O, soups, etc....) and drink plenty of fluids (water, Sprite, etc...) up to 8 glasses per day, as you can tolerate. 6. If your bandages become soaked with bright red blood, place another dressing pad over your bandages. (DO NOT remove original bandage.) Call your surgeon for further instructions. A small amount of bright red blood is to be expected. 7. Limit your activities for 24 hours. Do not engage in heavy work until your surgeon gives you permission. 8. Patient should not be left alone for 12-24 hours following surgical procedure. 9. Report the following signs or any questions regarding your physical condition to your surgeon immediately: Excessive swelling of, or around the wound area. Redness. Temperature of 100 degrees (F) or above. Excessive pain. 10. Call your surgeon for any questions regarding your surgery. 11. Wash hands before and after incision care. It is important to practice good personal hygiene during the post op period. documented in this encounter [employer] Phone: 01-18-2023 History of Presen t illness Narrative Notified GEOVANNI Briceño of pt's elevated BP, pt quite nervous, will recheck. Also notified GEOVANNI Briceño of pt's abnormal EKG. When trying to take preop PO medications, pt dropped 1 Tylenol, Neurontin, and Dramamine on floor. Pt took 1 Tylenol that was not dropped on the floor. Spoke to Brigid in pharmacy who reorders dropped medication. Given 1 Tylenol, Neurontin, and Dramamine. Wasted Neurontin in [employer]. Patient instructed per phone interview on the pre-operative, intra-operative, and post-operative process, as well as NPO status. Pre-operative instruction sheet reviewed as well as CHG skin prep instructions. Verbalizes understanding. Patient reminded to complete EKG as soon as possible. Verbalizes understanding. documented in this encounter [facility] [employer] Phone: 05-02-2021 History of Presen t illness Narrative 0826 - Lexiscan started. Pt c/o mild shortness of breath. 0828 - Pt tolerating well. SOB starting to subside. Denies any chest pain. 0831 - States breathing has returned back to normal. C/O dull headache. 0832 - Lexiscan complete. Pt tolerated well. Provided with coffee and snack. To radiology for ECHO and knee xray. documented in this encounter [employer] Phone: Evaluation note Diagnosis Precordial pain Abnormal ECG Nonspecific abnormal electrocardiogram (ECG) (EKG) documented in this encounter [employer] Phone: evaluation note* Diagnosis Acute pain of right knee documented in this encounter [employer] Phone: evaluation note* Diagnosis Chest pain, unspecified type Vitamin D deficiency disease Unspecified vitamin D deficiency Fatigue, unspecified type documented in this encounter [employer] Phone: evaluation note* Diagnosis Hip pain, left Pain in joint, pelvic region and thigh documented in this encounter [employer] Phone: evaluation note* Diagnosis Left groin pain Abdominal pain, left lower quadrant documented in this encounter [employer] Phone: evaluation note* Diagnosis Pre-op testing Preoperative examination, unspecified Inguinal hernia without obstruction or gangrene, recurrence not specified, unspecified laterality documented in this encounter [employer] Phone: evaluation note* Diagnosis Incarcerated left inguinal hernia- Primary Inguinal hernia without obstruction or gangrene, recurrence not specified, unspecified laterality Acute postoperative pain Other acute postoperative pain Lipoma of forearm Lipoma of other skin and subcutaneous tissue documented in this encounter [employer] Phone: evaluation note* Diagnosis Acute urinary retention- Primary Other specified retention of urine documented in this encounter [facility] [employer] Phone: Hospital Discharge instructions* Attachments The following attachments cannot be sent through Care Everywhere. * Urinary Retention (Mongolian) [facility] [employer] [facility]: Discharge Instructions * Attachments The following attachments cannot be sent through Care Everywhere. * C Dif Colitis (Mongolian) documented in this encounter Assessments Diagnosis Clostridium difficile colitis- Primary Intestinal infection due to clostridium difficile Advance Directives No Advanced Directives Records FoundDocuments on File Type Date Recorded Patient Latexer Expl anation Advance Directives and Living Will Power of Icu Rn Documents on File Type Date Recorded Patient Latexer Expl anation ACP-Advance Directive ACP-Power of Icu Rn Documents on File Type Date Recorded Patient Latexer Expl anation ACP-Advance Directive ACP-Power of Icu Rn Reason for Referral Status Reason Specialty Diagnoses / Procedures Referre d By Contact Referred To Contact Closed Cardiology Diagnoses Precordial pain Abnormal ECG Procedures ECHO Complete 2D W Doppler W Color Guy Díaz MD [address] [place] [address] Specialty Diagnoses / Procedures Referred By Contac t Referred To Contact Radiology Diagnoses Left groin pain Procedures CT PELVIS W CONTRAST Darryl Morris I, DO [address] [facility] [address] [place] [address] Referral ID Status Reason Start Date Expiration Date V isits Requested Visits Authorized [id number] Pending Review 07/14/2022 07/10/2023 1 1 Specialty Diagnoses / Procedures Referred By Contac t Referred To Contact Cardiology Diagnoses Pre-op testing Procedures EKG 12 lead Darryl Morris I, DO [address] [facility] [address] [place] [address] Referral ID Status Reason Start Date Expiration Date V isits Requested Visits Authorized [id number] Pending Review 11/09/2022 11/09/2023 1 1 Summary Purpose Family History No Family History Records FoundNo Family History Records FoundNo Family History Records Found Additional Source Comments Reason for Visit (unrecogniz ed section and content) Reason Comments Abdominal Pain Pt was on recent ant ibiotics for gum infection and has had diarrhea since 3 days into his course of anitbiotics. Diarrhea Status Reason Specialty Diagnoses / Procedures Referre d By Contact Referred To Contact Closed Cardiology Diagnoses Precordial pain Abnormal ECG Procedures Cardiac Stress Test - w/Pharm Guy Díaz MD [address] [place] [address] Status Reason Specialty Diagnoses / Procedures Referre d By Contact Referred To Contact Closed Cardiology Diagnoses Precordial pain Abnormal ECG Procedures ECHO Complete 2D W Doppler W Color Arjun, MD Guy [address] [place] [address] Specialty Diagnoses / Procedures Referred By Contac t Referred To Contact Radiology Diagnoses Left groin pain Procedures CT PELVIS W CONTRAST Darryl Morris I, [address] [facility] [address] [place] [address] Referral ID Status Reason Start Date Expiration Date V isits Requested Visits Authorized [id number] Pending Review 07/14/2022 07/10/2023 1 1 Specialty Diagnoses / Procedures Referred By Contac t Referred To Contact Diagnoses Inguinal hernia without obstruction or gangrene, recurrence not specified, unspecified laterality LEFT INGUINAL HERNIA Procedures AZ LAPAROSCOPY SURG RPR INITIAL INGUINAL HERNIA HERNIA INGUINAL REPAIR LAPAROSCOPIC ROBOTIC Darryl Morris DO [address] [facility] [address] [place] [address] [facility] [address] [place] [address] Referral ID Status Reason Start Date Expiration Date Visits Re quested Visits Authorized [id number] 1 1 Reason Comments Post-op Problem Pt had hernia surger y, lipomas on right arm removed, and scrotum nodule removed today by Dr. Morris. Has not been able to urinate, instructed to come to ER. 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 [place] [id number] PCP - General Internal Medicine 12/18/17 Ordered Prescriptions (unrec ognized section and content) Prescription Sig Dispensed Refills Start Date End Da ibuprofen (ADVIL;MOTRIN) 600 MG tablet Take 1 tablet by mouth 3 times daily as needed for Pain (take w/ food- can alternate with percocet) 20 tablet 0 01/18/2023 ondansetron (ZOFRAN) 4 MG tablet Take 1 tablet by mouth every 8 hours as needed for Nausea or Vomiting 15 tablet 0 01/18/2023 oxyCODONE-acetaminophen (PERCOCET) 5-325 MG per tabletIndications:Acute postoperative pain Take 1 tablet by mouth every 4-6 hours as needed for Pain for up to 7 days. Intended supply: 7 days. Take lowest dose possible to manage pain Max Daily Amount: 6 tablets 20 tablet 0 01/18/2023 01/25/2023 Scheduled Active and Recently Administ ered Medications (unrecognized section and content) Medication Order 01/16/2023 01/17/2023 01/18/2023 acetaminophen (TYLENOL) tablet 650 mg (COMPLETED) 650 mg, Oral, ONCE, 1 dose, On Xuan 01/18/23 at 0630, Maximum dose of acetaminophen is 4000 mg from all sources in 24 hours., Pre-op (day of surgery) 06 (Given - Provid er: Lyssa Hannah RN) acetaminophen (TYLENOL) tablet 650 mg (COMPLETED) 650 mg, Oral, ONCE, 1 dose, On Xuan 01/18/23 at 0730, Maximum dose of acetaminophen is 4000 mg from all sources in 24 hours., Pre-op (day of surgery) 07 (Given - Provid er: Lyssa Hannah RN - Comment: pt took one tablet, dropped second tablet) ceFAZolin (ANCEF) 2000 mg in 0.9% sodium chloride 100 mL IVPB (COMPLETED) 2,000 mg, IntraVENous, ONCE, 1 dose, On Xuan 01/18/23 at 0630, Antimicrobial Indications: Surgical Prophylaxis, Pre-op (day of surgery) 0839 (New Bag - Prov ider: Lyssa Hannah RN)0909 (Due: Stopped - Provider: Lyssa Hannah RN) dimenhyDRINATE (DRAMAMINE) tablet 50 mg (COMPLETED) 50 mg, Oral, ONCE, 1 dose, On Xuan 01/18/23 at 0630, Pre-op (day of surgery) 06 (Given - Provid er: Lyssa Hannah RN) dimenhyDRINATE (DRAMAMINE) tablet 50 mg (COMPLETED) 50 mg, Oral, ONCE, 1 dose, On Xuan 01/18/23 at 0730, Pre-op (day of surgery) 07 (Given - Provid er: Lyssa Hannah RN) gabapentin (NEURONTIN) capsule 100 mg (COMPLETED) 100 mg, Oral, ONCE, 1 dose, On Xuan 23 at 0630, Pre-op (day of surgery) 0656 (Given - Provid er: Lyssa Hannah RN) gabapentin (NEURONTIN) capsule 100 mg (COMPLETED) 100 mg, Oral, ONCE, 1 dose, On Xuan 01/18/23 at 0730, Pre-op (day of surgery) 0709 (Given - Provid er: Lyssa Hannah RN) Continuous Medication Order 01/16/2023 01/17/2023 01/18/2023 lactated ringers IV soln infusion IntraVENous, at 100 mL/hr, CONTINUOUS, Starting on Xuan 01/18/23 at 0630, Pre-op (day of surgery) 0647 (New Bag - Prov ider: Lyssa Hannah RN)0841 (NoRateChange - Provider: MAGALIS De Dios CRNA)1127 (Paused - Provider: MAGALIS De Dios CRNA - Comment: Switch to gravity)1128 (New Bag - Provider: MAGALIS De Dios CRNA)1220 (Anesthesia Volume Adjustment - Provider: MAGALIS De Dios CRNA)1406 (Stopped - Provider: Brandi Lopez RN) lactated ringers IV soln infusion IntraVENous, at 125 mL/hr, CONTINUOUS, Starting on Xuan 01/18/23 at 1245, PACU only 1245 (Due) PRN Medication Order 01/16/2023 01/17/2023 01/18/2023 bupivacaine-EPINEPHrine PF (MARCAINE-w/EPINEPHRINE) 0.5% -[id number] injection (CANCELED) PRN, Starting on Xuan 01/18/23 at 1120, Until Xuan 01/18/23 at 1219, Intra-op 1120 (Given - Provid er: Darryl Morris DO) fentaNYL (SUBLIMAZE) injection 25 mcg 25 mcg, IntraVENous, EVERY 5 MIN PRN, 4 doses, Starting on Xuan 01/18/23 at 1225, Until Discontinued, Pain Moderate (4-6), Phase I - Initial therapy for moderate pain., PACU only fentaNYL (SUBLIMAZE) injection 50 mcg 50 mcg, IntraVENous, EVERY 5 MIN PRN, 4 doses, Starting on Xuan 23 at 1225, Until Discontinued, Pain Severe (7-10), Phase I - Initial therapy for severe pain., PACU only ondansetron (ZOFRAN) injection 4 mg 4 mg, IntraVENous, ONCE PRN, 1 dose, Starting on Xuan 01/18/23 at 1225, Until 01/19/23 at 1225, Nausea, Initial antiemetic therapy., PACU only oxyCODONE (ROXICODONE) immediate release tablet 10 mg (COMPLETED) 10 mg, Oral, PRN, 1 dose, Starting on Xuan 01/18/23 at 1225, Until Xuan 01/18/23 at 2359, Pain Severe (7-10), PHASE II, PACU only 1319 (Given - Provid er: Brandi Lopez RN) prochlorperazine (COMPAZINE) injection 5 mg 5 mg, IntraVENous, ONCE PRN, 1 dose, Starting on Xuan 01/18/23 at 1225, Until 01/19/23 at 1225, Nausea, Secondary antiemetic therapy., PACU only PRN Medication Order 01/16/2023 01/17/2023 01/18/2023 lidocaine (XYLOCAINE) 2 % uro-jet Topical, PRN, Pain, Starting on Xuan 01/18/23 at 1943 1947 (Given - Provid er: Cy Foster RN) FOR RECORDS PERTAINING TO PATIENTS WHO ARE OR HAVE BEEN ENROLLED IN A CHEMICAL DEPENDENCY/SUBSTANCEABUSE PROGRAM, SOME INFORMATION MAY BE OMITTED. This clinical summary was aggregated from multiple sources. Caution should be exercised in using it in the provision of clinical care. This summary normalizes information from multiple sources, and as a consequence, information in this document may materially change the coding, format and clinical context of patient data. In addition, data may be omitted in some cases. CLINICAL DECISIONS SHOULD BE BASED ON THE PRIMARY CLINICAL RECORDS. [employer] [facility]. provides no warranty or guarantee of the accuracy or completeness of information in this document.
[2024-03-10] MEDS: LACTATED RINGER'S SOLUTION 1,000 ML 50 ML IV ×2 (12:30→15:57)
--- NOTE | 2024-03-10 13:11 | PC.NURSE ---
1245 TIME OUT PERFORMED 1246 2MG VERSED AND 50MG FENTANYL GIVEN AT THIS TIME 1247 LOOKING FOR INJECTION SITE WITH PROBE 1248 CLEANSING INJECTION SITE 1254 INJECTED NEEDLE WITH 1/2 ROPIVOCAIN , 5 MG DECADRON AND EPI 1256 PICTURE WAS TAKEN OF SCREEN WHERE NEEDLE WAS INSERTED 1259 PROCEDURE COMPLETED.
[2024-03-10] MEDS: CEFAZOLIN SODIUM/DEXTROSE,ISO 2 GM/50 ML PIGGYBACK IV (14:12)
[2024-03-10] MEDS: EPINEPHRINE HCL PF 1 MG/ML AMPULE 4 MG IO (15:48)
--- NOTE | 2024-03-10 16:23 | PC.NURSE ---
PATIENT VERBALIZES TO ANESTHESIA PHYSICIAN THAT HIS CHEST IS SORE. THIS WRITING CENTER DIRECTOR PALPATED PATIENT'S CHEST AND PATIENT STATES HE IS SORE .
--- NOTE | 2024-03-10 16:24 | P.ORPRC_ITS ---
Procedure Note Date of procedure: 03/10/24 Pre-op diagnosis: Left shoulder rotator cuff tear Post-op diagnosis: other (Left shoulder rotator cuff tear and biceps tendon tear) Procedure: Operation: Left shoulder arthroscopic rotator cuff repair Open subpectoralis biceps tenodesis Operative procedure: After informed consent was obtained the patient was brought to the operating room where general anesthetic was administered. Preoperatively regional block was placed. The patient was placed in the beachchair position. Exam under anesthesia of the left shoulder revealed full range of motion and no instability. The left shoulder was prepped and draped in the usual sterile fashion. Diagnostic arthroscopy was performed the standard anterior, posterior, and lateral arthroscopy portals. Findings included a partial thickness tear of the biceps tendon within the joint. This was tenotomized for later tenodesis. Subscapularis tendon had superficial fraying. Supraspinatus tendon had a full- thickness nonretracted tear. Infraspinatus was intact. In tear posterior and superior labral type I tearing which was debrided with the arthroscopic shaver back to stable edge. Axillary recess had no loose bodies. Mild inferior glenoid chondromalacia without unstable articular cartilage flaps. Attention was turned to the rotator cuff repair. The greater tuberosity was debrided down to bleeding bed of bone. The torn edge of the rotator cuff was debrided to more healthy tissue. Arthroscope was introduced in the subacromial space and there was minimal bursal inflammation which was removed the arthroscopic shaver. 1 Arthrex suture tape and 1 Arthrex labral tape were each placed in an inverted horizontal mattress fashion in the torn supraspinatus tendon. These were then repaired to the greater tuberosity with 1 Arthrex 4.75 bio composite swivel lock. Retention suture was passed more anteriorly to augment the repair. Solid repair was achieved. Shoulder was drained of arthroscopy fluid. Portals were closed with a nylon suture. 3 cm incision was made just below the pectoralis for a subpectoralis approach to the biceps tendon. Blunt dissection was carried down through soft tissue. The tenotomized biceps tendon was externalized. An Arthrex suture loop was placed from the muscle tendon junction extending 2 cm. More proximal tendon was removed. Remaining tendon was sized to 6 mm. The 2 suture ends were placed in an Arthrex biceps button. The guidepin was placed in a bicortical fashion in the appropriate position in the bicipital groove. A unicortical drill hole was created over the top of this. The biceps button was then passed to the far cortex and flipped. Sutures were pulled introducing the biceps tendon into the tunnel that was created. Sutures were tied. Nice repair was achieved. Wound was irrigated and closed with absorbable suture in layers. Steri-Strips and sterile dressing were placed. UltraSling was placed. Pain was awakened and brought to the recovery room in stable condition. There were no intraoperative or immediate postoperative complications. Anesthesia: GETA Surgeon: Augie Mcmillan Pathology: none sent Condition: stable Disposition: PACU
[2024-03-10] MEDS: MEPERIDINE HCL/PF 25 MG/ML VIAL 12.5 MG IVP (16:35)
[2024-03-10] MEDS: OXYCODONE HCL/ACETAMINOPHEN 5MG/325MG 1 TAB PO (17:12)
== END 2024-03-10 17:43 | disposition home or self-care (01) ==
PROVIDERS: Anesthesiology; PCP Internal Medicine; Visit Provider Orthopaedic Surgery
PROC: (CPT 1630; principal; 2024-03-10 13:00)
DX: S46.012A Strain of muscle(s) and tendon(s) of the rotator cuff of left shoulder, initial encounter (principal); S46.212A Strain of muscle, fascia and tendon of other parts of biceps, left arm, initial encounter; S46.912A Strain of unspecified muscle, fascia and tendon at shoulder and upper arm level, left arm, initial encounter; X58.XXXA Exposure to other specified factors, initial encounter
CPT/HCPCS: 23430; 29827; 36415; 64415; 85025; C1713; J1094; J2704